=== PATIENT | male | born 1945 | race Hispanic/Latino ===

== ENCOUNTER → 2018-02-15 | Outpatient (CLI) | payer MEDICARE ==
[~2018-02-15] MED LIST: ASPIRIN81 MG PO; CLOPIDOGREL75 MG PO; ENALAPRIL MALE2.5 MG PO; FINASTERIDE5 MG PO; GARLIC1 EACH PO; GLIPIZIDE XL2.5 MG PO; LOVASTATIN40 MG PO; OMEPRAZOLE40 MG PO; OXYBUTYNIN CHLO15 MG PO; SUCRALFATE1 GM PO; VESICARE5 MG PO
--- NOTE | 2018-02-15 15:20 | Diagnostic Imaging Report ---
EXAMINATION: Pelvis and sacrum Films CLINICAL HISTORY:Bladder problems, neuromuscular dysfunction of bladder, unspecified COMPARISON: None. DISCUSSION: Generalized osteopenia. No acute, displaced fractures or dislocations. Mild degenerative changes in bilateral hip and sacroiliac joints. No gross soft tissue abnormalities. No osteolytic or osteoblastic lesions. Sacral arches are preserved. Neurostimulator device in the soft tissues of the left lower back/upper gluteal region, with wire likely traversing the right S4 foramen. Moderate degenerative disc changes at L4-L5 and L5-S1. IMPRESSION: 1. No acute abnormalities. 2. Neural stimulator device in the left lower back/upper gluteal region, with wire likely traversing the right S4 neural foramen Signed by: Dr. Heriberto Villanueva M.D. on 02/15/2018 3:17 PM
== END ==
LOC: RAD 13:17
PROVIDERS: ATTEND Urology
DX: N31.9 Neuromuscular dysfunction of bladder, unspecified (principal)
CPT/HCPCS: 72170; 72220

== ENCOUNTER → 2018-05-06 | Day surgery (SDC) | payer MEDICARE ==
[2018-05-03 16:59] LABS: BASOPHILS % 0.3 % (0.0-1.0); EOSINOPHILS # (AUTO) 0.4 (0.0-0.4); EOSINOPHILS % 6.4 % (0.0-6.0); HEMATOCRIT 41.7 % (38.2-49.6); HEMOGLOBIN 13.8 g/dL (14.0-18.0); LYMPHOCYTES # (AUTO) 1.6 (1.0-3.2); LYMPHOCYTES % 25.8 % (18.0-39.1); MEAN CORPUSCULAR HEMOGLOBIN 32.2 pg (28-32); MEAN CORPUSCULAR HGB CONC 33.1 g/dL (31-35); MEAN CORPUSCULAR VOLUME 97.2 fL (81-99); MONOCYTES # (AUTO) 0.5 (0.2-0.8); MONOCYTES % 8.2 % (4.4-11.3); NEUTROPHILS # (AUTO) 3.7 (2.1-6.9); NEUTROPHILS % 59.1 % (38.7-80.0); PLATELET COUNT 211 x10e3/uL (140-360); RED BLOOD COUNT 4.29 x10e6/uL (4.3-5.7); RED CELL DISTRIBUTION WIDTH 12.7 % (11.7-14.4)
[2018-05-03 17:15] LABS: ANION GAP 14.3 mmol/L (8-16); BLOOD UREA NITROGEN 14 mg/dL (7-26); BUN/CREATININE RATIO 19 (6-25); CALCIUM 8.8 mg/dL (8.4-10.2); CARBON DIOXIDE 27 mmol/L (22-29); CHLORIDE 103 mmol/L (98-107); CREATININE, SERUM 0.74 mg/dL (0.72-1.25); EST GLOMERULAR FILTRATION RATE > 60 ML/MIN (60-); GLUCOSE 83 mg/dL (74-118); POTASSIUM 4.3 mmol/L (3.5-5.1); SODIUM 140 mmol/L (136-145)
--- NOTE | 2018-05-03 17:21 | Diagnostic Imaging Report ---
EXAM: XR CHEST 2 VIEWS DATE: 05/03/2018 4:43 PM INDICATION: Preoperative, pain COMPARISON: None FINDINGS: Lines and Tubes: None Heart and Mediastinum: No acute cardiomediastinal findings. Tortuosity descending thoracic aorta. Lungs and Pleura: No significant pleural effusion, pneumothorax, or focal consolidation. Bones and Soft Tissues: Degenerative changes spine. IMPRESSION: 1. No acute cardiopulmonary findings. Signed by: Dr. Nando Pereira MD on 05/03/2018 5:18 PM
[~2018-05-06] MED LIST changes: +BUPIVACAINE 0.5%/EPI 30 ML SDV INJ ONE; +CARBIDOPA-LEVO1 EACH PO; +CLINDAMYCIN 600MG / 50ML 50 ML IV ONE; +DEXAMETHASONE SOD PHOS INJ 4 MG/ML VIAL ONE; +FENTANYL CITRATE/PF 100MCG/2 ML INJ ONE; +FERROUS SULFAT325 M1 PO; +GABAPENTIN100 MG PO; +GENTAMICIN 80MG/NS 100 ML 100 ML IV ONE; +LEXAPRO10 MG PO; +LIDOCAINE 2%/ EPINEPHRINE 20ML MDV ONE; +LIDOCAINE HCL 2% LOCAL INJ 5 ML SDV VIAL INJ ONE; +METOPROLOL TART25 MG PO; +ONDANSETRON HCL INJ 2MG/ML 2ML 2 MG/ML VIAL ONE; +PANTOPRAZOLE SO40 MG PO; +PROPOFOL IV EMULSION 10 MG/ML 20 ML VIAL ONE; +SEVOFLURANE INHAL SOLN 250 ML PEN BTL ONE; +SINEMET 25-1001 EACH PO; +SUCCINYLCHOLINE 200 MG/10 ML SYR ONE
--- OUTSIDE RECORDS SUMMARY | 2018-05-06 08:39 | XMS REPORT | Clinical Summary ---
Author Author TAMMY [facility] Address Unknown Phone Unavailable Care Team Providers Care Packer Name Role Phone Valerie Myradahlia Suarez PCP Allergies Comments Active Allergy Reactions Severity Noted Date Penicillins Hives 07/16/2017 Medications End Date Status Medication Sig Dispensed Refills Start Date Active lovastatin (MEVACOR) 40 Take 40 mg by 0 MG tablet mouth nightly. Active pantoprazole (PROTONIX) Take 40 mg by 0 40 MG tablet mouth daily. Active glipiZIDE 2.5 MG halftab Take 10 mg by 0 half tablet mouth every morning before breakfast. Active gabapentin (NEURONTIN) Take 100 mg 0 100 MG capsule by mouth 3 (three) times daily. Active finasteride (PROSCAR) 5 Take 5 mg by 0 mg tablet mouth daily. Active linaclotide (LINZESS) 145 Take by 0 mcg Cap mouth. Active clopidogrel (PLAVIX) 75 Take 75 mg by 0 mg tablet mouth daily. Active enalapril (VASOTEC) 2.5 Take 2.5 mg 0 MG tablet by mouth daily. Active solifenacin (VESICARE) 5 Take 10 mg by 0 MG tablet mouth daily. Active ferrous sulfate 325 (65 Take 325 mg 0 FE) MG tablet by mouth daily with breakfast. Active carbidopa-levodopa Take 1 tablet 0 (SINEMET) 25-100 mg per by mouth 3 tablet (three) times daily. 09/14/2017 Discontinued escitalopram oxalate Take 10 mg by 0 (LEXAPRO) 10 MG tablet mouth daily. 09/22/2017 HYDROcodone-acetaminophen Take 2 30 tablet 0 (NORCO 5-325) 5-325 mg tablets by 8 per tablet mouth every 6 (six) hours for 10 days. Max Daily Amount: 8 tablets 09/19/2017 levoFLOXacin (LEVAQUIN) Take 1 tablet 7 tablet 0 500 MG tablet (500 mg 8 total) by mouth daily for 7 days. 09/22/2017 traMADol (ULTRAM) 50 mg Take 1 tablet 30 tablet 0 tablet (50 mg total) 8 by mouth every 6 (six) hours for 10 days. 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 [facility] General Internal Medicine - Encounter 09/15/2017 Jermain Zamudio MD 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 Encounter Jermain Zamudio MD 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 Encounter Jeramin Zamudio MD 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 Hospital Pre-Admission Testing Encounter 08/25/2017 Orders Only General Internal Medicine Jermain Zamudio MD Ampullary adenoma (Primary Dx) 08/23/2017 Outside Orders Radiology Inocencio Guerrero MD 08/03/2017 Anesthesia Gastroenterology Event Mic Gutierrez MD ERCP,BALLOON SWEEPING 08/03/2017 Surgery Gastroenterology Mic Gutierrez MD 08/03/2017 Hospital Gastroenterology Encounter Jermain Zamudio MD Ampullary adenoma (Primary Dx) 07/29/2017 Outside Orders Central Scheduling after 05/05/2017 Social History Date Tobacco Use Types Packs/Day Years Used Former Smoker Smokeless Tobacco: Never Used Comments: quit 1997 Alcohol Use Drinks/Week oz/Week Comments No Sex Assigned at Date Recorded Not on file Industry Job Start Date Occupation Not on file Not on file Not on file Travel End Travel History Travel Start No recent travel history available. Last Filed Vital Signs Time Taken Vital Sign Reading 09/24/2017 7:25 PM CDT Blood Pressure 145/76 09/24/2017 7:25 PM CDT Pulse 98 09/24/2017 7:25 PM CDT Temperature 36.8 C (98.2 F) 09/24/2017 7:25 PM CDT Respiratory Rate 18 09/24/2017 7:25 PM CDT Oxygen Saturation 97% 09/12/2017 10:37 PM CDT Inhaled Oxygen 21% Concentration 09/14/2017 7:05 AM CDT Weight 70.5 kg (155 lb 6.4 oz) 09/09/2017 8:15 PM CDT Height 170.2 cm (5' 7") 09/14/2017 7:05 AM CDT Body Mass Index 24.34 Plan of Treatment Not on file Implants Device Identifier Shelf Expiration Date Model / Serial / Lot Implanted Type Area Manufactur er 07/04/2019 4301-02 / / [id number] Memb Seprafilm Adhen Rodriguez 5x6 Cement/Juan N/A: Abdomen GENZYME 4301-02 - [id number] ler/Adhesi DEMARIO: Implanted: Qty: 2 on 09/09/2017 by ve BIO-SURG Jermain Zamudio MD 06/24/2019 7064 / [id number] / [id number] Stent Bili Rx Wallflx 10x60 - Stents-Per N/A: Bile Duct [place] [id number] ipheral SCI:ENDO Implanted: Qty: 1 on 08/03/2017 by Mic Gutierrez MD Procedures Comments Procedure Name Priority Date/Time Associated Diagnosis INTRAOPERATIVE PATH 01/21/2018 REPORT - SCAN 6:[address] ABDOMEN/PELVIS WITH IV STAT 09/24/2017 CONTRAST 5:20 PM CDT URINALYSIS W/ MICROSCOPIC STAT 09/24/2017 3:36 PM CDT URINE CULTURE STAT 09/24/2017 3:36 PM CDT POCT-LACTIC ACID, VENOUS Routine 09/24/2017 1:52 PM CDT CBC W/PLT COUNT & AUTO STAT 09/24/2017 DIFFERENTIAL 1:50 PM CDT HEPATIC FUNCTION PANEL STAT 09/24/2017 1:50 PM CDT TROPONIN I STAT 09/24/2017 1:50 PM CDT CREATINE KINASE (CK), STAT 09/24/2017 TOTAL AND MB 1:50 PM CDT CBC W/PLT COUNT & AUTO STAT 09/24/2017 DIFFERENTIAL 1:50 PM CDT BASIC METABOLIC PANEL (7) STAT 09/24/2017 1:50 PM CDT MISCELLANEOUS LAB ORDER Routine 09/24/2017 1:50 PM CDT BLOOD CULTURE STAT 09/24/2017 1:50 PM CDT POCT-GLUCOSE METER Routine 09/15/2017 11:49 AM CDT POCT-GLUCOSE METER Routine 09/15/2017 7:50 AM CDT PHOSPHORUS Routine 09/15/2017 5:57 AM CDT MAGNESIUM Routine 09/15/2017 5:57 AM CDT BASIC METABOLIC PANEL (7) Routine 09/15/2017 5:57 AM CDT CBC (HEMOGRAM ONLY) Routine 09/15/2017 5:57 AM CDT POTASSIUM Routine 09/14/2017 10:15 PM CDT POCT-GLUCOSE METER Routine 09/14/2017 8:48 PM CDT POCT-GLUCOSE METER Routine 09/14/2017 4:53 PM CDT REPORT OF PROCEDURE - 09/14/2017 ENDOSCOPY URL 4:18 PM CDT UPPER ENDOSCOPY 09/14/2017 Dysphagia, unspecified 4:00 PM CDT type Special Needs EGD/PEG WITH ANES POCT-GLUCOSE METER Routine 09/14/2017 11:28 AM CDT POCT-GLUCOSE METER Routine 09/14/2017 5:37 AM CDT PHOSPHORUS Routine 09/14/2017 4:23 AM CDT MAGNESIUM Routine 09/14/2017 4:23 AM CDT BASIC METABOLIC PANEL (7) Routine 09/14/2017 4:23 AM CDT CBC (HEMOGRAM ONLY) Routine 09/14/2017 4:23 AM CDT POCT-GLUCOSE METER Routine 09/13/2017 10:47 PM CDT POCT-GLUCOSE METER Routine 09/13/2017 4:51 PM CDT PHOSPHORUS STAT 09/13/2017 12:30 PM CDT MAGNESIUM STAT 09/13/2017 12:30 PM CDT BASIC METABOLIC PANEL (7) Routine 09/13/2017 12:30 PM CDT POCT-GLUCOSE METER Routine 09/13/2017 12:08 PM CDT CBC (HEMOGRAM ONLY) Routine 09/13/2017 5:52 AM CDT POCT-GLUCOSE METER Routine 09/13/2017 5:09 AM CDT POCT-GLUCOSE METER Routine 09/12/2017 10:35 PM CDT BLOOD GAS, ARTERIAL STAT 09/12/2017 9:[address] ABDOMEN/PELVIS WITH IV STAT 09/12/2017 CONTRAST 8:57 PM CDT ECG 12-LEAD STAT 09/12/2017 6:48 PM CDT TROPONIN I STAT 09/12/2017 5:38 PM CDT XR ABDOMEN 1 VIEW STAT 09/12/2017 4:40 PM CDT POCT-GLUCOSE METER Routine 09/12/2017 3:43 PM CDT POCT-GLUCOSE METER Routine 09/12/2017 12:02 PM CDT POCT-GLUCOSE METER Routine 09/12/2017 7:40 AM CDT ECG 12-LEAD STAT 09/12/2017 6:32 AM CDT TROPONIN I STAT 09/12/2017 4:32 AM CDT BASIC METABOLIC PANEL (7) Routine 09/12/2017 4:32 AM CDT CBC (HEMOGRAM ONLY) Routine 09/12/2017 4:32 AM CDT AMYLASE, BODY FLUID Routine 09/12/2017 4:27 AM CDT AMYLASE, BODY FLUID Routine 09/12/2017 4:26 AM CDT POCT-GLUCOSE METER Routine 09/11/2017 9:29 PM CDT POCT-GLUCOSE METER Routine 09/11/2017 4:44 PM CDT POCT-GLUCOSE METER Routine 09/11/2017 11:24 AM CDT POCT-GLUCOSE METER Routine 09/11/2017 8:30 AM CDT POCT-GLUCOSE METER Routine 09/10/2017 10:29 PM CDT TRANSFUSION SERVICE 09/10/2017 REPORT - SCAN 5:50 PM CDT POCT-GLUCOSE METER Routine 09/10/2017 5:47 PM CDT POCT-GLUCOSE METER Routine 09/10/2017 11:24 AM CDT AMYLASE, BODY FLUID Routine 09/10/2017 10:01 AM CDT AMYLASE, BODY FLUID JENNI 09/10/2017 10:00 AM CDT POCT-GLUCOSE METER Routine 09/10/2017 7:34 AM CDT MAGNESIUM Routine 09/10/2017 5:17 AM CDT BASIC METABOLIC PANEL (7) Routine 09/10/2017 5:17 AM CDT CBC (HEMOGRAM ONLY) Routine 09/10/2017 5:17 AM CDT AMYLASE, BODY FLUID Routine 09/10/2017 5:17 AM CDT AMYLASE, BODY FLUID Routine 09/10/2017 5:17 AM CDT POCT-GLUCOSE METER Routine 09/09/2017 8:45 PM CDT POCT-GLUCOSE METER Routine 09/09/2017 6:02 PM CDT POCT-GLUCOSE METER Routine 09/09/2017 3:34 PM CDT CALCIUM, IONIZED STAT 09/09/2017 11:51 AM CDT GLUCOSE-STAT LAB STAT 09/09/2017 11:51 AM CDT SURGICALLY OBTAINED Routine 09/09/2017 CULTURE + GRAM STAIN 10:55 AM CDT ANAEROBIC CULTURE JENNI 09/09/2017 10:55 AM CDT CALCIUM, IONIZED STAT 09/09/2017 10:13 AM CDT HGB/HCT (H&H) - STAT LAB STAT 09/09/2017 10:13 AM CDT GLUCOSE-STAT LAB STAT 09/09/2017 10:13 AM CDT POTASSIUM-STAT LAB STAT 09/09/2017 10:13 AM CDT SODIUM NA-STAT LAB STAT 09/09/2017 10:13 AM CDT BLOOD GAS, ARTERIAL STAT 09/09/2017 10:13 AM CDT TISSUE EXAM AP Routine 09/09/2017 9:25 AM CDT WHIPPLE 09/09/2017 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 Needs (ERAS ANESTHESIA PROTOCAL) PREPARE RBC STAT 09/09/2017 6:48 AM CDT POCT-GLUCOSE METER Routine 09/09/2017 6:43 AM CDT TRANSFUSION SERVICE 08/26/2017 REPORT - SCAN 5:[address] ABDOMEN/PELVIS Routine 08/25/2017 Ampullary adenoma WITH/WITHOUT IV CONTRAST 3:[address] CHEST WITH IV CONTRAST Routine 08/25/2017 Ampullary adenoma 3:20 PM CDT ECG 12-LEAD Routine 08/25/2017 1:30 PM CDT Procedure Note - Interface, External Ris In - 08/25/2017 1:42 PM CDT Ventricula r Rate 67 BPM Atrial Rate 67 BPM P-R Interval 174 ms QRS Duration 102 ms Q-T Interval 390 ms QTC Calculatio n(Bazett) 412 ms P Branch 75 degrees R Branch -21 degrees T Branch 54 degrees Normal sinus rhythm Normal ECG No previous ECGs available ECG 12-LEAD Routine 08/25/2017 1:30 PM CDT CBC W/PLT COUNT & AUTO Routine 08/25/2017 Ampullary adenoma DIFFERENTIAL 1:24 PM CDT TYPE AND SCREEN, Routine 08/25/2017 AUTOMATED 1:24 PM CDT PREALBUMIN Routine 08/25/2017 Ampullary adenoma 1:24 PM CDT PROTHROMBIN TIME/INR Routine 08/25/2017 Ampullary adenoma 1:24 PM CDT HEPATIC FUNCTION PANEL Routine 08/25/2017 Ampullary adenoma 1:24 PM CDT BASIC METABOLIC PANEL (7) Routine 08/25/2017 Ampullary adenoma 1:24 PM CDT CBC W/PLT COUNT & AUTO Routine 08/25/2017 Ampullary adenoma DIFFERENTIAL 1:24 PM CDT REPORT OF PROCEDURE - 08/03/2017 ENDOSCOPY URL 3:42 PM CDT FL ERCP Routine 08/03/2017 3:40 PM CDT ERCP,BILIARY STENT 08/03/2017 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) Losing weight Epigastric abdominal pain Abnormal digestive system diagnostic imaging Special Needs (SPYGLASS, FLUORO) PROCEDURE W/ C-ARM 08/03/2017 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) Losing weight Epigastric abdominal pain Abnormal digestive system diagnostic imaging Special Needs (SPYGLASS, FLUORO) ERCP,BALLOON SWEEPING 08/03/2017 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 Narrative Performed At FINAL REPORT [facility] CT scan of the abdomen and pelvis. CLINICAL HISTORY: Abdominal pain, gastritis or colitis suspected. COMPARISON STUDY: September 12, 2017. TECHNIQUE: Contiguous helical slices were acquired through the abdomen and pelvis post administration of intravenous contrast. No oral contrast was administered. This exam was performed according to our department dose optimization program which includes automated exposure control, adjustment of the mA and/or kV according to the patient's size and/or use of iterative reconstruction technique. FINDINGS: A 3 mm nodule is seen in the right lower lobe on image seven. There is a 4 mm subpleural nodule in the right middle lobe on image four. The liver demonstrates no definite focal masses. Postsurgical changes are seen related to a Whipple procedure. There is a 2.3 x 1.7 cm fluid collection interposed between the residual pancreas and left lobe of the liver. A 2.4 x 1.6 cm focus of fluid is seen inferior to the pancreatic anastomosis. Bowel wall thickening is noted in this region. Stranding is seen in the mesentery. The previously seen extraluminal gas has resolved. The stomach remains distended and fluid-filled. The spleen, adrenal glands and kidneys are unremarkable. Pneumobilia is seen. The portal vein remains patent measuring 9 mm distally. It is compressed proximally. No dilated loops of bowel are seen to suggest obstruction. A tiny calcification is seen in the anterior wall of the bladder. Minimal gas is also noted in the bladder. This could be related to recent Montejo catheter insertion. A cystitis would also be possible. The aorta is normal in caliber. Stranding is seen anterior to the aorta with small lymph nodes identified. This should be followed up. Significant diverticulosis is seen. Bone windows demonstrate degenerative changes. A stimulation device is seen in the buttock region with a wire extending to the pelvis. IMPRESSION: 1. Tiny nodules in the right lung base. 2. Status post Whipple procedure with two small loculated areas of fluid in the surgical bed. 3. Distended, fluid-filled stomach and a gastric outlet obstruction cannot be excluded. 4. Areas of stranding and some small lymph nodes at the site of surgery which could be followed up. 5. Small amount of gas in the bladder. Correlation with urinalysis could be made. Signed: Greg Ceron MD Report Verified Date/Time:09/24/2017 17:36:36 Reading Location: [facility] B1 [id number] [facility] Consult Reading Room Procedure Note Interface, External Ris In - 09/24/2017 5:38 PM CDT FINAL REPORT CT scan of the abdomen and pelvis. CLINICAL HISTORY: Abdominal pain, gastritis or colitis suspected. COMPARISON STUDY: September 12, 2017. TECHNIQUE: Contiguous helical slices were acquired through the abdomen and pelvis post administration of intravenous contrast. No oral contrast was administered. This exam was performed according to our department dose optimization program which includes automated exposure control, adjustment of the mA and/or kV according to the patient's size and/or use of iterative reconstruction technique. FINDINGS: A 3 mm nodule is seen in the right lower lobe on image seven. There is a 4 mm subpleural nodule in the right middle lobe on image four. The liver demonstrates no definite focal masses. Postsurgical changes are seen related to a Whipple procedure. There is a 2.3 x 1.7 cm fluid collection interposed between the residual pancreas and left lobe of the liver. A 2.4 x 1.6 cm focus of fluid is seen inferior to the pancreatic anastomosis. Bowel wall thickening is noted in this region. Stranding is seen in the mesentery. The previously seen extraluminal gas has resolved. The stomach remains distended and fluid-filled. The spleen, adrenal glands and kidneys are unremarkable. Pneumobilia is seen. The portal vein remains patent measuring 9 mm distally. It is compressed proximally. No dilated loops of bowel are seen to suggest obstruction. A tiny calcification is seen in the anterior wall of the bladder. Minimal gas is also noted in the bladder. This could be related to recent Montejo catheter insertion. A cystitis would also be possible. The aorta is normal in caliber. Stranding is seen anterior to the aorta with small lymph nodes identified. This should be followed up. Significant diverticulosis is seen. Bone windows demonstrate degenerative changes. A stimulation device is seen in the buttock region with a wire extending to the pelvis. IMPRESSION: 1. Tiny nodules in the right lung base. 2. Status post Whipple procedure with two small loculated areas of fluid in the surgical bed. 3. Distended, fluid-filled stomach and a gastric outlet obstruction cannot be excluded. 4. Areas of stranding and some small lymph nodes at the site of surgery which could be followed up. 5. Small amount of gas in the bladder. Correlation with urinalysis could be made. Signed: Greg Ceron MD Report Verified Date/Time: 09/24/2017 17:36:36 Reading Location: [facility] C013X [facility] Consult Reading Room Performing Organization Address City/State/Zipcode Phone Number [facility] * Urinalysis w/Microscopic (09/24/2017 3:36 PM CDT) Color, UA Yellow [facility] Clarity, UA Clear [facility] Specific [place], UA 1.007 1.001 - 1.035 [facility] pH, UA 7.0 5.0 - 8.0 [facility] Protein, UA Negative Negative [facility] Glucose, UA Negative Negative [facility] Ketones, UA Negative Negative [facility] Bilirubin, UA Negative Negative [facility] Blood, UA Negative Negative [facility] Nitrite, UA Negative Negative [facility] Leukocytes, UA Moderate (A) Negative [facility] Urobilinogen, UA 0.2 0.2 - 1.0 mg/dL [facility] RBC, UA <1 /HPF [facility] WBC, UA 4 /HPF [facility] Mucus Rare [facility] Squam Epithel, UA 1 /HPF [facility] Specimen Source Urine, Voided [facility] Specimen Urine - Urine, Voided Performing Organization Address City/State/Zipcode Phone Number [facility] [address] [place] [address] MEDICAL [facility] * Urine culture (09/24/2017 3:36 PM CDT) Result STAPHYLOCOCCUS, COAGULASE [facility] NEGATIVE (A) [facility] Specimen Urine - Urine, Voided Antibiotic Method Susceptibility Organism Clindamycin >=4: Resistant Coagulase negative Staphylococcus Erythromycin >=8: Resistant Coagulase negative Staphylococcus Linezolid 1: Susceptible Coagulase negative Staphylococcus Nitrofurantoin <=16: Susceptible Coagulase negative Staphylococcus Oxacillin >=4: Resistant Coagulase negative Staphylococcus Rifampin >=32: Resistant Coagulase negative Staphylococcus Tetracycline <=1: Susceptible Coagulase negative Staphylococcus Trimethoprim + Sulfamethoxazole 160: Resistant Coagulase negative Staphylococcus Vancomycin 1: Susceptible Coagulase negative Staphylococcus Performing Organization Address City/[facility]/Zipcode Phone Number [address] [address] [facility] * POC-Lactic Acid, Venous (09/24/2017 1:52 PM CDT) POC-Lactic Acid, Venous 0.7 (L)Comment: TESTED AT 0.9 - 1.7 mmol/L [address] [address] Specimen Blood Performing Organization Address [facility] Cent[facility]ode Phone Number [address] [address] [facility] * BCID (09/24/2017 1:50 PM CDT) Scan Result [facility] Specimen Blood Narrative Performed At [facility] Result comments: [facility] NOT DETECTED Panel is negative for CoursePeerFire BCID-detectable organisms. Please refer to traditional culture and sensitivity results as they become available. Other organisms and resistance markers not contained in this PCR panel cannot be excluded and follow-up of traditional culture results is required. This sample was tested at the [facility] using the CoursePeerfirLaunchPoint FilmArray Blood Culture ID Panel. This test is FDA cleared for in vitro diagnostic use and has been verified and approved by the [facility] for clinical use. Reference Range: Not Detected Performing Organization Address City/[facility] Cent[facility]ode Phone Number [address] [address] [facility] * CBC with platelet count + automated diff (09/24/2017 1:50 PM CDT) Only the most recent of 2 results within the time period is included. WBC 8.1 3.5 - 10.5 K/L [facility] RBC 3.95 (L) 4.63 - 6.08 M/L [facility] Hemoglobin 11.7 (L) 13.7 - 17.5 GM/DL [facility] Hematocrit 36.7 (L) 40.1 - 51.0 % [facility] MCV 92.9 (H) 79.0 - 92.[address] [facility] MCH 29.6 25.7 - 32.[address] [facility] MCHC 31.9 (L) 32.3 - 36.5 GM/DL [facility] RDW 14.0 11.6 - 14.4 % [facility] Platelets 563 (H) 150 - 450 K/CU MM [facility] MPV 8.6 (L) 9.4 - 12.[address] [facility] nRBC 0 0 - 0 /[address] [facility] % Neutros 73 % [facility] % Lymphs 13 % [facility] % Monos 8 % [facility] % Eos 4 % [facility] % Baso 1 % [facility] # Neutros 5.92 (H) 1.78 - 5.38 K/L [facility] # Lymphs 1.05 (L) 1.32 - 3.57 K/L [facility] # Monos 0.65 0.30 - 0.82 K/L [facility] # Eos 0.36 0.04 - 0.54 K/L [facility] # Baso 0.04 0.01 - 0.08 K/L [facility] Immature 1 0 - 1 % [facility] Specimen Blood - Line, Venous Performing Organization Address City/State/Zipcode Phone Number [facility] [address] [place] [address] MEDICAL [facility]ENTER * Troponin I (09/24/2017 1:50 PM CDT) Only the most recent of 3 results within the time period is included. Troponin I <0.01 0.00 - 0.03 ng/mL [facility] Specimen Blood - Line, Venous Narrative Performed At Troponin I (TnI) levels must be interpreted in the context of the presenting [facility] symptoms and the clinical findings. Elevated TnI levels indicate myocardial [facility] damage, but are not specific for ischemic heart disease. Elevated TnI levels are seen in patients with other cardiac conditions (including myocarditis and congestive heart failure), and slight TnI elevations occur in patients with other conditions, including sepsis, renal failure, acidosis, acute neurological disease, and persistent tachyarrhythmia. Performing Organization Address [facility] Centercode Phone Number [address] [address] [facility] * Blood culture (09/24/2017 1:50 PM CDT) Result No growth in [address] [facility] Specimen Blood - Line, Venous Narrative Performed At NOT DETECTED [facility] Panel is negative for BioFire BCID-detectable organisms. Please refer to [facility] traditional culture and sensitivity results as they become available. Other organisms and resistance markers not contained in this PCR panel cannot be excluded and follow-up of traditional culture results is required. This sample was tested at the [facility] using the CoursePeerfirLaunchPoint FilmArray Blood Culture ID Panel. This test is FDA cleared for in vitro diagnostic use and has been verified and approved by the [facility] for clinical use. Reference Range: Not Detected Performing Organization Address City/[facility]/Zipcode Phone Number [facility] [facility] [address] [place] [address] [facility] * Creatine Kinase (CK), Total and MB (09/24/2017 1:50 PM CDT) Total CK 11 (L) 29 - 200 U/L [facility] CK-MB 0.7 0.0 - 6.6 ng/mL [facility] MB Relative Index 6.4 % [facility] Specimen Blood - Line, Venous Narrative Performed At CK-MB Reference Range: [facility] <6.7Normal [facility] 6.7-10.0Borderline >10.0 Abnormal Performing Organization Address City/[facility]/Zipcode Phone Number [facility] [address] [place] [address] [facility] * Hepatic function panel (09/24/2017 1:50 PM CDT) Only the most recent of 2 results within the time period is included. Protein, Total 6.6 6.0 - 8.3 gm/dL [facility] Albumin 3.5 3.5 - 5.0 g/dL [facility] Total Bilirubin 0.3 0.2 - 1.2 mg/dL [facility] Bilirubin, Direct 0.2 0.1 - 0.5 mg/dL [facility] Alkaline Phosphatase 100 40 - 150 U/L [facility] AST 14 5 - 34 U/L [facility] ALT 8 6 - 55 U/L [facility] Specimen Blood - Line, Venous Performing Organization Address City/[facility]/Zipcode Phone Number [facility] [address] [place] [address] [facility] * Basic Metabolic Panel (09/24/2017 1:50 PM CDT) Only the most recent of 7 results within the time period is included. Sodium 137 136 - 145 meq/L [facility] Potassium 4.4 3.5 - 5.1 meq/L [facility] Chloride 101 98 - 107 meq/L [facility] CO2 28 22 - 29 meq/L [facility] BUN 11 7 - 21 mg/dL [facility] Creatinine 0.74 0.57 - 1.25 mg/dL [facility] Glucose 155 (H) 70 - 105 mg/dL [facility] Calcium 9.0 8.4 - 10.2 mg/dL [facility] EGFR 104Comment: ESTIMATED GFR IS mL/min/1.73 sq m [facility] NOT ACCURATE CREATININE [facility] CLEARANCE IN PREDICTING GLOMERULAR FILTRATION RATE. ESTIMATED GFR IS NOT APPLICABLE FOR DIALYSIS PATIENTS. Specimen Blood - Line, Venous Performing Organization Address City/[facility] Centercode Phone Number [address] [address] [facility] * POC-Glucose meter (09/15/2017 11:49 AM CDT) Only the most recent of 27 results within the time period is included. POC-Glucose Meter 224 (H)Comment: TESTED AT 70 - 110 mg/dL [address] [address] Specimen Blood Performing Organization Address City/[facility] Centercomo Phone Number [address] [address] [facility] * CBC (Hemogram only) (09/15/2017 5:57 AM CDT) Only the most recent of 5 results within the time period is included. WBC 8.1 3.5 - 10.5 K/L [facility] RBC 3.12 (L) 4.63 - 6.08 M/L [facility] Hemoglobin 9.9 (L) 13.7 - 17.5 GM/DL [facility] Hematocrit 30.0 (L) 40.1 - 51.0 % [facility] MCV 96.2 (H) 79.0 - 92.[address] [facility] MCH 31.7 25.7 - 32.[address] [facility] MCHC 33.0 32.3 - 36.5 GM/DL [facility] RDW 14.6 (H) 11.6 - 14.4 % [facility] Platelets 230 150 - 450 K/CU MM [facility] MPV 9.3 (L) 9.4 - 12.[address] [facility] nRBC 0 0 - 0 /[address] [facility] Specimen Blood - Arm, Left Performing Organization Address [facility] Centercode Phone Number [address] * Phosphorus (09/15/2017 5:57 AM CDT) Only the most recent of 3 results within the time period is included. Phosphorus 2.8 2.3 - 4.7 mg/dL [facility] Specimen Blood - Arm, Left Performing Organization Address [facility] Phone Number [address] * Magnesium (09/15/2017 5:57 AM CDT) Only the most recent of 4 results within the time period is included. Magnesium 2.1 1.6 - 2.6 mg/dL [facility] Specimen Blood - Arm, Left Performing Organization Address [facility] Phone Number [address] * Potassium (09/14/2017 10:15 PM CDT) Potassium 3.7 3.5 - 5.1 meq/L [facility] Specimen Blood - Arm, Right Narrative Performed At Please check once IV potassium repletion complete [facility] Performing Organization Address [facility] Phone Number [address] * REPORT OF PROCEDURE - ENDOSCOPY URL (09/14/2017 4:18 PM CDT) Narrative Performed At * Blood gas, arterial (09/12/2017 9:55 PM CDT) Only the most recent of 2 results within the time period is included. pH, Arterial 7.48 (H) 7.35 - 7.45 [facility] pCO2, Arterial 44 35 - [address] [facility] pO2, Arterial 58 (L) 80 - [address] [facility] O2 Sat, Arterial 91.9 (L) 96.0 - 97.0 % [facility] HCO3, Arterial 32 (H) 21 - 29 mmol/L [facility] Base Excess, Arterial 7.0 (H) -2.0 - 3.0 mmol/L [facility] Patient Temperature 36.[address] [facility] Specimen Blood, Arterial Performing Organization Address City/State/Zipcode Phone Number [facility] [address] [place] [address] [facility] * ECG 12 lead (09/12/2017 6:48 PM CDT) Only the most recent of 3 results within the time period is included. Narrative Performed At Ventricular Rate 129 BPM GE MUSE Atrial Rate 129 BPM P-R Interval 142 ms QRS Duration 94 ms Q-T Interval 300 ms QTC Calculation(Bazett) 439 ms P Branch 41 degrees R Branch -5 degrees T Branch 31 degrees Sinus tachycardia Possible Lateral infarct (cited on or before 12-SEP-2017) Abnormal ECG When compared with ECG of 12-SEP-2017 06:32, ST now depressed in Anterior leads Confirmed by Mir BARNES MICHAEL ([id number]) on 09/13/2017 7:11:21 AM Procedure Note Interface, External Ris In - 09/13/2017 7:11 AM CDT Ventricular Rate 129 BPM Atrial Rate 129 BPM P-R Interval 142 ms QRS Duration 94 ms Q-T Interval 300 ms QTC Calculation(Bazett) 439 ms P Branch 41 degrees R Branch -5 degrees T Branch 31 degrees Sinus tachycardia Possible Lateral infarct (cited on or before 12-SEP-2017) Abnormal ECG When compared with ECG of 12-SEP-2017 06:32, ST now depressed in Anterior leads Confirmed by Mir BARNES MICHAEL ([id number]) on 09/13/2017 7:11:21 AM Performing Organization Address City/[facility] Phone Number GE MUSE * XR abdomen / KUB 1 view (09/12/2017 4:40 PM CDT) Narrative Performed At FINAL REPORT GE [facility] Abdomen One View: Reason for Exam: SBO Comparison studies: CT, 08/25/2017 Discussion: There is a relative lack of bowel gas in the left mid and upper abdomen, possibly a distended fluid-filled stomach. No obstruction is seen. No free intraperitoneal air is seen on the supine x-rays. The bones are intact. A pelvic stimulator device is identified. Impression: No acute radiographic abnormality. Signed: Emile Richardson MD Report Verified Date/Time:09/12/2017 17:15:43 Reading Location: [address] Ortho Consult Reading Room Procedure Note Interface, External Ris In - 09/12/2017 5:17 PM CDT FINAL REPORT Abdomen One View: Reason for Exam: SBO Comparison studies: CT, 08/25/2017 Discussion: There is a relative lack of bowel gas in the left mid and upper abdomen, possibly a distended fluid-filled stomach. No obstruction is seen. No free intraperitoneal air is seen on the supine x-rays. The bones are intact. A pelvic stimulator device is identified. Impression: No acute radiographic abnormality. Signed: Emile Richardson MD Report Verified Date/Time: 09/12/2017 17:15:43 Reading Location: [address] Ortho Consult Reading Room Performing Organization Address [facility] Phone Number [employer] RIS * Amylase, body fluid (09/12/2017 4:27 AM CDT) Only the most recent of 6 results within the time period is included. Amylase, Fluid 172 U/L [facility] Specimen Body Fluid - ROSE Drain Narrative Performed At Absence of reference range indicates that normals have not been defined. [facility] Assay performance has not been validated for this type of specimen. [facility] ROSE #2 Performing Organization Address City/[facility]/Zipcode Phone Number [address] * TRANSFUSION SERVICE REPORT - SCAN (09/10/2017 5:50 PM CDT) Only the most recent of 2 results within the time period is included. Narrative Performed At * Glucose-Stat Lab (09/09/2017 11:51 AM CDT) Only the most recent of 2 results within the time period is included. Glucose 212 (H) 70 - 110 mg/dL [facility] Specimen Blood, Arterial Performing Organization Address [facility] Centercomo Phone Number [address] * Calcium, Ionized (09/09/2017 11:51 AM CDT) Only the most recent of 2 results within the time period is included. Calcium, Ion 1.11 (L) 1.12 - 1.27 mmol/L [facility] pH, Blood 7.47 [facility] Specimen Blood Performing Organization Address [facility] Centercomo Phone Number [address] * Anaerobic culture (09/09/2017 10:55 AM CDT) Result BACTEROIDES FRAGILIS (A) [facility] Result ANAEROBIC GRAM-NEGATIVE [facility] BACILLUS (A)Comment: Same as [facility] first isolate. Specimen Body Fluid - Abdomen Performing Organization Address [facility] Centercode Phone Number [place] [phone] [place] [address] * Surgically obtained culture + gram stain (09/09/2017 10:55 AM CDT) Result PROTEUS MIRABILIS (A) [facility] Result SERRATIA MARCESCENS [facility] (A)Comment: AmpC Positive [facility] Result ESCHERICHIA COLI (A) [facility] Result KLEBSIELLA OXYTOCA (A) [facility] Result 3+ Enterococcus species (A) [facility] Result STREPTOCOCCUS, VIRIDANS GROUP [facility] (A) [facility] Gram Stain Result No WBCs [facility] Gram Stain Result No organisms seen [facility] Specimen Wound - Abdomen Antibiotic Method Susceptibility Organism Amikacin <=2: Susceptible Proteus mirabilis Ampicillin + Sulbactam <=2: Susceptible Proteus mirabilis Cefepime <=1: Susceptible Proteus mirabilis Cefoxitin <=4: Susceptible Proteus mirabilis Ceftazidime <=1: Susceptible Proteus mirabilis Ceftriaxone <=1: Susceptible Proteus mirabilis Ertapenem <=0.5: Susceptible Proteus mirabilis Gentamicin <=1: Susceptible Proteus mirabilis Levofloxacin <=0.12: Susceptible Proteus mirabilis Meropenem 1: Susceptible Proteus mirabilis Piperacillin + Tazobactam <=4: Susceptible Proteus mirabilis Tetracycline >=16: Resistant Proteus mirabilis Tobramycin <=1: Susceptible Proteus mirabilis Trimethoprim + Sulfamethoxazole <=20: Susceptible Proteus mirabilis Amikacin <=2: Susceptible Serratia marcescens Aztreonam Resistant Serratia marcescens Cefepime <=1: Susceptible Serratia marcescens Cefoxitin 32: Resistant Serratia marcescens Ceftazidime Resistant Serratia marcescens Ceftriaxone Resistant Serratia marcescens Ertapenem <=0.5: Susceptible Serratia marcescens Gentamicin <=1: Susceptible Serratia marcescens Levofloxacin <=0.12: Susceptible Serratia marcescens Meropenem <=0.25: Susceptible Serratia marcescens Tetracycline 4: Susceptible Serratia marcescens Tobramycin <=1: Susceptible Serratia marcescens Trimethoprim + Sulfamethoxazole <=20: Susceptible Serratia marcescens Amikacin <=2: Susceptible Escherichia coli Ampicillin + Sulbactam <=2: Susceptible Escherichia coli Aztreonam <=1: Susceptible Escherichia coli Cefepime <=1: Susceptible Escherichia coli Cefoxitin <=4: Susceptible Escherichia coli Ceftazidime <=1: Susceptible Escherichia coli Ceftriaxone <=1: Susceptible Escherichia coli Ertapenem <=0.5: Susceptible Escherichia coli Gentamicin <=1: Susceptible Escherichia coli Levofloxacin <=0.12: Susceptible Escherichia coli Meropenem <=0.25: Susceptible Escherichia coli Piperacillin + Tazobactam <=4: Susceptible Escherichia coli Tetracycline >=16: Resistant Escherichia coli Tobramycin <=1: Susceptible Escherichia coli Trimethoprim + Sulfamethoxazole <=20: Susceptible Escherichia coli Amikacin <=2: Susceptible Klebsiella oxytoca Ampicillin + Sulbactam 4: Susceptible Klebsiella oxytoca Aztreonam <=1: Susceptible Klebsiella oxytoca Cefepime <=1: Susceptible Klebsiella oxytoca Cefoxitin <=4: Susceptible Klebsiella oxytoca Ceftazidime <=1: Susceptible Klebsiella oxytoca Ceftriaxone <=1: Susceptible Klebsiella oxytoca Ertapenem <=0.5: Susceptible Klebsiella oxytoca Gentamicin <=1: Susceptible Klebsiella oxytoca Levofloxacin <=0.12: Susceptible Klebsiella oxytoca Meropenem <=0.25: Susceptible Klebsiella oxytoca Piperacillin + Tazobactam <=4: Susceptible Klebsiella oxytoca Tetracycline <=1: Susceptible Klebsiella oxytoca Tobramycin <=1: Susceptible Klebsiella oxytoca Trimethoprim + Sulfamethoxazole <=20: Susceptible Klebsiella oxytoca Ampicillin <=2: Susceptible Enterococcus species Linezolid 2: Susceptible Enterococcus species Vancomycin <=0.5: Susceptible Enterococcus species Performing Organization Address [facility] Phone Number [place] [phone] * Potassium-Stat Lab (09/09/2017 10:13 AM CDT) Potassium 3.6 3.6 - 5.5 meq/L [facility] Specimen Blood, Arterial Performing Organization Address [facility] [place] [address] [phone] * Sodium Na-Stat Lab (09/09/2017 10:13 AM CDT) Sodium 137 135 - 148 meq/L [facility] Specimen Blood, Arterial Performing Organization Address [facility]/State/Zipcode Phone Number [facility] [address] [place] [address] [facility] * HGB/HCT (H&H)-Stat Lab (09/09/2017 10:13 AM CDT) Hemoglobin 12.2 (L) 13.0 - 16.8 g/dL [facility] Hematocrit 36.0 (L) 40.0 - 50.0 % [facility] Specimen Blood, Arterial Performing Organization Address City/State/Zipcode Phone Number [facility] [address] [place] [address] [facility] * Tissue Exam (09/09/2017 9:25 AM CDT) Case Report Surgical Pathology [facility] Report [facility] Case: [id number] Authorizing Provider:Jermain Zamudio MD Collected: 09/09/2017 0925 Ordering Location: [facility] PERIOPERATIVE Received: 09/09/2017 1142 SERVICES Pathologist: Aster Mtz MD Specimens: A) - Lymph Node, Hepatic Artery Lymph Node B) - Gallbladder C) - Node, CYSTIC NODE D) - Pancreas, WHIPPLE SPECIMEN ( LONG STITCH SMA MARGINS) (SHORT STITCH -PANCREATIC NECK0 (BLUE STITCH IS BILEDUCT) DIAGNOSIS A. LYMPH NODES, HEPATIC [facility] ARTERY, EXCISION: [facility] - ONE BENIGN LYMPH NODE B. GALLBLADDER, CHOLECYSTECTOMY: - GALLBLADDER WITH ACUTE AND CHRONIC INFLAMMATION - NEGATIVE FOR INTESTINAL METAPLASIA, DYSPLASIA OR CARCINOMA C. LYMPH NODES, CYSTIC DUCT, DISSECTION: - ONE BENIGN LYMPH NODE D. 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 CPT Code(s) A. 09013 [facility] B. 32896 [facility] C. 18618 D. 48133, [address], [address]3240 x2 SPECIMEN SOURCE A. Lymph node; B. Gallbladder; [facility] C. Node; D. Pancreas [facility] GROSS DESCRIPTION The specimen is received in [facility] four parts labeled with the [facility] patient's information and given accession number which corresponds to the requisition slip with the same name and number. A. Received in formalin labeled "lymph node" is a 2.0 x 1.0 x 0.5 cm, clemons-yellow, irregular, soft tissue, which is bisected and submitted entirely in a single cassette, A1. B. Received in formalin labeled "gallbladder" is a 10.5 cm in length x 3.1 cm in average circumference gallbladder to include 2.0 cm in length x 0.2 cm in diameter cystic duct. The external surface is clemons-pink to focally brownish smooth and glistening. The specimen is opened to reveal clemons-brown, smooth and glistening mucosal surface. No hemorrhage, necrosis, calculi or lesions are identified. The wall thickness measuring up to 0.2 cm in average thickness. Drop Hammer Mechanic sections are submitted as follows: B1, cystic duct; B2, customer care representative sections of the gallbladder wall (fundus, body and neck). C. Received in formalin labeled "cystic node tissue" is a 2.0 x 1.0 x 0.5 cm, clemons-brown, irregular, soft tissue. One possible lymph node measuring 0.4 x 0.2 x 0.2 cm is identified. The lymph node is bisected and submitted in cassette C1, and the rest of the is submitted in cassette C2. CRESENCIO/demond D. Received fresh for intraoperative consultation labeled "Whipple specimen" is a Whipple resection specimen including duodenum, head of pancreas and common bile duct stump. The duodenum is 23 cm in length and is 7.0 cm in average diameter circumference and 0.7 cm average wall thickness. The pancreas is 3.5 cm in length and is 4.2 x 4.0 x 3.1 cm in cross sectional area. The common bile duct stump is 0.6 cm in length and 0.3 cm in diameter at the margin. Ink code: green, SMA margin and lumen of common bile duct; red, pancreatic neck margin and luminal pancreatic duct; red, pancreatic neck margin and luminal pancreatic duct; yellow, vascular groove; black, posterior pancreatic surface; blue, anterior pancreatic surface. Gross photographs are taken. Bivalving the pancreas reveals a 2.9 x 2.6 x 2.5cm solid clemons-pink mass centered around the ampulla. The mass is located 7 cm from the proximal duodenal resection margin, 15 cm from the distal duodenal margin, 5 cm from the uncinate margin and 5.5 cm from the common bile duct margin. The pancreatic duct is patent. The common bile duct is patent with 7 cm in length x 0.1 cm in diameter stent in place. The posterior surface is clemons-yellow, lobulated and fatty. The anterior surface is clemons-pink and smooth. The mass does not appear to involve the anterior or posterior surfaces. The uninvolved pancreas is clemons-yellow and soft. The duodenal mucosa is clemons-pink and smooth with irregular mucosal folds. Five possible lymph nodes are identified in the soft tissue around the organs, ranging from 0.5 cm to 2.5 cm in greatest dimension. Gross photographs were taken. Section code: FSD1, pancreatic neck resection margin, en face; FSD2, common bile duct margin, en face; D3, cystic duct margin, en face; D4-D17, ampullary mass, sequentially submitted around the common bile duct; D18, D19, customer care representative sections of the soft tissue of pancreaticoduodenal groove; D20, D21, customer care representative sections of the anterior pancreas (uninvolved); D22, D23, posterior pancreas, uninvolved; D24, D25, peripancreatic lymph node, bisected; D26, D27, peripancreatic lymph nodes (three lymph nodes in each); D28, four possible lymph nodes, peripancreatic. D29, D30, proximal duodenal resection margin, en face, D31-D33 distal duodnal resection margin, D34-D39 uncinate pancreatic margin (perpendicular). D40-D42. Additional sections of pancreas with bile duct. MA/pl/ew INTRAOPERATIVE HEAD OF PANCREAS, DUODENUM, [facility] CONSULTATION WHIPPLE RESECTION [facility] D1FS: PANCREATIC NECK MARGIN - NEGATIVE FOR CARCINOMA [id number]: BILE DUCT MARGINS - NEGATIVE FOR CARCINOMA MICROSCOPIC DESCRIPTION (A-D): Microscopic examination [facility] is performed and the findings [facility] are incorporated in the diagnostic line. Specimen Tissue - Lymph Node Performing Organization Address City/State/Zipcode Phone Number [facility] [address] [place] [address] [facility] * Prepare RBC (09/09/2017 6:48 AM CDT) CROSSMATCH COMPATIBLE SAFETRACE TX Unit ABO O Pos SAFETRACE TX UNIT NUMBER [id number] SAFETRACE TX Status READY SAFETRACE TX Blood Bank Product RED BLOOD CELLS SAFETRACE TX PRODUCT CODE [id number] SAFETRACE TX CROSSMATCH COMPATIBLE SAFETRACE TX Unit ABO O Pos SAFETRACE TX UNIT NUMBER [id number] SAFETRACE TX Status READY SAFETRACE TX Blood Bank Product RED BLOOD CELLS SAFETRACE TX PRODUCT CODE [id number] SAFETRACE TX Performing Organization Address City/[facility] Phone Number SAFETRACE [place] * CT chest with IV contrast (08/25/2017 3:20 PM CDT) Narrative Performed At FINAL REPORT [employer] [facility] INDICATION: 72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 Staging CT exam. COMPARISON: None. TECHNIQUE: CT of the Chest WITH intravenous contrast. CT of the Abdomen and Pelvis WITHOUT and WITH intravenous contrast. Water was used for enteric contrast. The exam was performed according to our department dose-optimization protocol, which includes automated exposure control, adjustments of mA and kV according to patient size. Iterative reconstructions are also sometimes employed. FINDINGS: THORAX: No mediastinal, hilar, supraclavicular, or axillary lymphadenopathy is demonstrated. No suspicious pulmonary nodule or mass is demonstrated. There is no pleural effusion or suspicious pleural nodularity. Thyroid gland is diffusely enlarged extending deep to the manubrium. Both lobes measure approximately 6.5 x 2.8 x 3.9 cm. No thyroid nodules are demonstrated. Esophagus is unremarkable. Heart and pericardium are unremarkable. Mild calcified plaque of the thoracic aorta demonstrated. Thoracic aorta and main pulmonary artery normal in caliber. ABDOMEN and PELVIS: There is a metallic stent in the common bile duct extending into the third part of the duodenum with expected pneumobilia. The intrahepatic bile ducts are not dilated. There is suggestion of thickening of the ampulla, though this is not well visualized because of the presence of the metallic stent. No pancreatic mass or pancreatic ductal dilatation is demonstrated. No upper abdominal lymphadenopathy. No suspicious liver lesion. Spleen, adrenal glands, kidneys, bladder, and prostate gland are unremarkable. No pelvic or retroperitoneal lymphadenopathy. There is scattered mild calcified plaque of the abdominal aorta and iliac arteries. Stomach and jejunal and ileal loops are unremarkable. There is diffuse mild increase in colonic stool burden. Diverticulosis of the sigmoid colon noted. No peritoneal free fluid. BONES: No suspicious osseous lesion demonstrated. IMPRESSION: No evidence of metastasis in the chest, abdomen, or pelvis. Diffusely enlarged and nonnodular thyroid gland. Metallic stent in the common bile duct extending into the third part of the duodenum. No biliary ductal dilatation. 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 Staging CT exam. COMPARISON: None. TECHNIQUE: CT of the Chest WITH intravenous contrast. CT of the Abdomen and Pelvis WITHOUT and WITH intravenous contrast. Water was used for enteric contrast. The exam was performed according to our department dose-optimization protocol, which includes automated exposure control, adjustments of mA and kV according to patient size. Iterative reconstructions are also sometimes employed. FINDINGS: THORAX: No mediastinal, hilar, supraclavicular, or axillary lymphadenopathy is demonstrated. No suspicious pulmonary nodule or mass is demonstrated. There is no pleural effusion or suspicious pleural nodularity. Thyroid gland is diffusely enlarged extending deep to the manubrium. Both lobes measure approximately 6.5 x 2.8 x 3.9 cm. No thyroid nodules are demonstrated. Esophagus is unremarkable. Heart and pericardium are unremarkable. Mild calcified plaque of the thoracic aorta demonstrated. Thoracic aorta and main pulmonary artery normal in caliber. ABDOMEN and PELVIS: There is a metallic stent in the common bile duct extending into the third part of the duodenum with expected pneumobilia. The intrahepatic bile ducts are not dilated. There is suggestion of thickening of the ampulla, though this is not well visualized because of the presence of the metallic stent. No pancreatic mass or pancreatic ductal dilatation is demonstrated. No upper abdominal lymphadenopathy. No suspicious liver lesion. Spleen, adrenal glands, kidneys, bladder, and prostate gland are unremarkable. No pelvic or retroperitoneal lymphadenopathy. There is scattered mild calcified plaque of the abdominal aorta and iliac arteries. Stomach and jejunal and ileal loops are unremarkable. There is diffuse mild increase in colonic stool burden. Diverticulosis of the sigmoid colon noted. No peritoneal free fluid. BONES: No suspicious osseous lesion demonstrated. IMPRESSION: No evidence of metastasis in the chest, abdomen, or pelvis. Diffusely enlarged and nonnodular thyroid gland. Metallic stent in the common bile duct extending into the third part of the duodenum. No biliary ductal dilatation. 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 Staging CT exam. COMPARISON: None. TECHNIQUE: CT of the Chest WITH intravenous contrast. CT of the Abdomen and Pelvis WITHOUT and WITH intravenous contrast. Water was used for enteric contrast. The exam was performed according to our department dose-optimization protocol, which includes automated exposure control, adjustments of mA and kV according to patient size. Iterative reconstructions are also sometimes employed. FINDINGS: THORAX: No mediastinal, hilar, supraclavicular, or axillary lymphadenopathy is demonstrated. No suspicious pulmonary nodule or mass is demonstrated. There is no pleural effusion or suspicious pleural nodularity. Thyroid gland is diffusely enlarged extending deep to the manubrium. Both lobes measure approximately 6.5 x 2.8 x 3.9 cm. No thyroid nodules are demonstrated. Esophagus is unremarkable. Heart and pericardium are unremarkable. Mild calcified plaque of the thoracic aorta demonstrated. Thoracic aorta and main pulmonary artery normal in caliber. ABDOMEN and PELVIS: There is a metallic stent in the common bile duct extending into the third part of the duodenum with expected pneumobilia. The intrahepatic bile ducts are not dilated. There is suggestion of thickening of the ampulla, though this is not well visualized because of the presence of the metallic stent. No pancreatic mass or pancreatic ductal dilatation is demonstrated. No upper abdominal lymphadenopathy. No suspicious liver lesion. Spleen, adrenal glands, kidneys, bladder, and prostate gland are unremarkable. No pelvic or retroperitoneal lymphadenopathy. There is scattered mild calcified plaque of the abdominal aorta and iliac arteries. Stomach and jejunal and ileal loops are unremarkable. There is diffuse mild increase in colonic stool burden. Diverticulosis of the sigmoid colon noted. No peritoneal free fluid. BONES: No suspicious osseous lesion demonstrated. IMPRESSION: No evidence of metastasis in the chest, abdomen, or pelvis. Diffusely enlarged and nonnodular thyroid gland. Metallic stent in the common bile duct extending into the third part of the duodenum. No biliary ductal dilatation. 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 Staging CT exam. COMPARISON: None. TECHNIQUE: CT of the Chest WITH intravenous contrast. CT of the Abdomen and Pelvis WITHOUT and WITH intravenous contrast. Water was used for enteric contrast. The exam was performed according to our department dose-optimization protocol, which includes automated exposure control, adjustments of mA and kV according to patient size. Iterative reconstructions are also sometimes employed. FINDINGS: THORAX: No mediastinal, hilar, supraclavicular, or axillary lymphadenopathy is demonstrated. No suspicious pulmonary nodule or mass is demonstrated. There is no pleural effusion or suspicious pleural nodularity. Thyroid gland is diffusely enlarged extending deep to the manubrium. Both lobes measure approximately 6.5 x 2.8 x 3.9 cm. No thyroid nodules are demonstrated. Esophagus is unremarkable. Heart and pericardium are unremarkable. Mild calcified plaque of the thoracic aorta demonstrated. Thoracic aorta and main pulmonary artery normal in caliber. ABDOMEN and PELVIS: There is a metallic stent in the common bile duct extending into the third part of the duodenum with expected pneumobilia. The intrahepatic bile ducts are not dilated. There is suggestion of thickening of the ampulla, though this is not well visualized because of the presence of the metallic stent. No pancreatic mass or pancreatic ductal dilatation is demonstrated. No upper abdominal lymphadenopathy. No suspicious liver lesion. Spleen, adrenal glands, kidneys, bladder, and prostate gland are unremarkable. No pelvic or retroperitoneal lymphadenopathy. There is scattered mild calcified plaque of the abdominal aorta and iliac arteries. Stomach and jejunal and ileal loops are unremarkable. There is diffuse mild increase in colonic stool burden. Diverticulosis of the sigmoid colon noted. No peritoneal free fluid. BONES: No suspicious osseous lesion demonstrated. IMPRESSION: No evidence of metastasis in the chest, abdomen, or pelvis. Diffusely enlarged and nonnodular thyroid gland. Metallic stent in the common bile duct extending into the third part of the duodenum. No biliary ductal dilatation. Signed: Timbo Hill MD Report Verified Date/Time: 08/25/2017 17:40:28 Reading Location: [facility] C013Y CT Body Reading Room Performing Organization Address [facility] Phone Number RIS * Type and screen, automated (08/25/2017 1:24 PM CDT) ABO/RH AUTOMATED (BEAKER) O POSITIVE [facility] Ab Scrn NEGATIVE [facility] Specimen Blood Performing Organization Address [facility] Phone Number [place] [phone] [place] [address] [facility] * Prothrombin time/INR (08/25/2017 1:24 PM CDT) Protime 14.8 (H) 11.7 - 14.[address] [facility] INR 1.2 <=[address]9 [facility] Specimen Blood Narrative Performed At RECOMMENDED COUMADIN/WARFARIN INR THERAPY RANGES [facility] STANDARD DOSE: 2.0 - 3.0 Includes: PROPHYLAXIS for venous thrombosis, [facility] systemic embolization; TREATMENT for venous thrombosis and/or pulmonary embolus. HIGH RISK: Target INR is 2.5-3.5 for patients with mechanical heart valves. Performing Organization Address [facility] Phone Number [facility] [address] [place] [address] [phone] [address] * Prealbumin (08/25/2017 1:24 PM CDT) Prealbumin 22 14 - 45 mg/dL [facility] Specimen Blood Performing Organization Address City/State/Zipcode Phone Number [facility] [address] [place] [address] [phone] [address] * REPORT OF PROCEDURE - ENDOSCOPY URL (08/03/2017 3:42 PM CDT) Narrative Performed At * [place] Endoscopic Retrograde Cholangiopancreatography (08/03/2017 3:40 PM CDT) Narrative Performed At FINAL REPORT GE RIS Fluoroscopic images were acquired for procedural assistance. Fluoroscopy time 2.2 minutes. Fluoroscopic images 4. Fluoroscopy was used during endoscopic retrograde cholangiogram and placement of a second stent in the distal common bile duct. Because images were not submitted for interpretation, see separate report by the referring physician for clinical details and imaging interpretation. Signed: Timbo Hill MD Report Verified Date/Time:08/03/2017 16:34:57 Reading Location: [address] Radiology Reading Room Procedure Note Interface, External Ris In - 08/03/2017 4:37 PM CDT FINAL REPORT Fluoroscopic images were acquired for procedural assistance. Fluoroscopy time 2.2 minutes. Fluoroscopic images 4. Fluoroscopy was used during endoscopic retrograde cholangiogram and placement of a second stent in the distal common bile duct. Because images were not submitted for interpretation, see separate report by the referring physician for clinical details and imaging interpretation. Signed: Timbo Hill MD Report Verified Date/Time: 08/03/2017 16:34:57 Reading Location: [address] Radiology Reading Room Performing Organization Address City/State/Zipcode Phone Number GE RIS after 05/05/2017 Insurance Payer Benefit Subscriber ID Type Phone Address Plan / Group [facility] Advance Directives For more information, please contact: [facility] [address] [place] [address] Date Inactivated Comments Code Status Date Activated 09/15/2017 5:56 PM Full Code 09/09/2017 6:42 AM This code status was determined by: Patient
--- OUTSIDE RECORDS SUMMARY | 2018-05-06 08:39 | XMS REPORT ---
Author Author [facility] Address Unknown Phone Unavailable Care Team Providers Care J2Ee Java Developer Name Role Phone LORRI GUTIERREZ Unavailable Unavailable SEMAJ ARITA Unavailable Unavailable ABDIRAHMAN ZAMUDIO Unavailable Unavailable Senia BUENO Unavailable Unavailable Problems This patient has no known problems. Allergies, Adverse Reactions, Alerts This patient has no known allergies or adverse reactions. Medications This patient has no known medications. Results Test Description Test Time Test Comments Text Results Atomic Results Result Comments CHEST 2 VIEWS 2018-05-03 17:17:00 [place] [id number] Patient Name: VINAYAK KERR MR #: [id number] : 1945 Age/Sex: 73/M Req #: [id number] Adm Physician: Ordered by: LORRI GUTIERREZ MD Report #: [id number] Location: OR Room/Bed: Procedure: [id number] DX/CHEST 2 VIEWS Exam Date: Exam Time: REPORT STATUS: Signed EXAM: XR CHEST 2 VIEWS DATE: 05/03/2018 4:43 PM INDICATION: Preopera tive, pain COMPARISON: None FINDINGS: Lines and Tubes: None Heart and Mediastinum: No acute cardiomediastinal findings. Tortuosity descending thoracic aorta. Lungs and Pleura: No significant pleural effusion, pneumothorax, or focal consolidation. Bones and Soft Tissues: Degenerative changes spine. IMPRESSION: 1. No acute cardiopulmonary findings. Signed by: Dr. Marko Pereira MD on 05/03/2018 5:18 PM Dictated By: MARKO PEREIRA MD 17 Transcribed By: ROMAINE on 05/03/181717 COPY TO: LORRI GUTIERREZ MD SACRUM X-RAY 2018-02-15 15:09:00 [place] [id number] Patient Name: VINAYAK KERR MR #: [id number] : 1945 Age/Sex: 73/M Req #: [id number] Adm Physician: Ordered by: LORRI GUTIERREZ MD Report #: [id number] Location: [facility] Room/Bed: Procedure: [id number] DX/SACRUM X-RAY Exam Date: Exam Time: REPORT STATUS: Signed EXAMINATION: Pelvis and sacrum Films CLINICAL HISTORY:Bladder problems, n euromuscular dysfunction of bladder, unspecified COMPARISON: None. DISCUSSION: Generalized osteopenia. No acute, displaced fractures or dislocations. Mild degenerative changes in bilateral hip and sacroiliac joints. No gross soft tissue abnormalities. No osteolytic or osteoblastic lesions. Sacral arches are preserved. Neurostimulator device in the soft tissues of the left lower back/upper gluteal region, with wire likely traversing the right S4 foramen. Moderate degenerative disc changes at L4-L5 and L5-S1. IMPRESSION: 1. No acute abnormalities. 2. Neural stimulator device in the left lower back/upper gluteal region, with wire likely traversing the right S4 neural foramen Signed by: Dr. Heriberto Purdy M.D. on 02/15/2018 3:17 PM Dictated By: HERIBERTO PURDY MD 16 Transcribed By: ROMAINE on 02/15/181516 COPY TO: LORRI GUTIERREZ MD PELVIS AP 1-2 VIEWS 2018-02-15 15:09:00 [place] [address] Patient Name: VINAYAK KERR MR #: [id number] : 1945 Age/Sex: 73/M Req #: [id number] Adm Physician: Ordered by: LORRI GUTIERREZ MD Report #: [id number] Location: [facility] Room/Bed: Procedure: [id number] DX/PELVIS AP 1-2 VIEWS Exam Date: Exam Time: REPORT STATUS: Signed EXAMINATION: Pelvis and sacrum Films CLINICAL HISTORY:Bladder pr oblems, neuromuscular dysfunction of bladder, unspecified COMPARISON: None. DISCUSSION: Generalized osteopenia. No acute, displaced fractures or dislocations. Mild degenerative changes in bilateral hip and sacroiliac joints. No gross soft tissue abnormalities. No osteolytic or osteoblastic lesions. Sacral arches are preserved. Neurostimulator device in the soft tissues of the left lower back/upper gluteal region, with wire likely traversing the right S4 foramen. Moderate degenerative disc changes at L4-L5 and L5-S1. IMPRESSION: 1. No acute abnormalities. 2. Neural stimulator device in the left lower back/upper gluteal region, with wire likely traversing the right S4 neural foramen Signed by: Dr. Heriberto Purdy M.D. on 02/15/2018 3:17 PM Dictated By: HERIBERTO PURDY MD 16 Transcribed By: ROMAINE on 02/15/181516 COPY TO: LORRI GUTIERREZ MD BLOOD CULTURE 2017-09-30 00:00:00 CULTURE (BEAKER) (test qypb=4775) No growth in 5 days NOT DETECTEDPanel is negative for BioFire BCID-detectable organisms. Please refe r to traditional culture and sensitivity results as they become available.Other organisms and resistance markers not contained in this PCR panel cannot be exclu ded and follow-up of traditional culture results is required. This sample was t ested at the [facility] Clinical Microbiology Laboratory using the PPI FilmArray Blood Culture ID Panel. This test is FDA cleared for in vitro diagnostic use and has been verified and approved by the [facility] Clinical Microbiology laboratory for clinical use. Reference Range: Not DetectedMISCELLANEOUS LAB [id number] 14:30:00* Test Item Value Reference Range Comments SCAN RESULT (test kdnb=[id number]) Result comments: NOT DETECTED Panel is negative for BioFire BCID-detectable orga nisms. Please refer to traditional culture and sensitivity results as they becom e available. Other organisms and resistance markers not contained in this PCR pa danilo cannot be excluded and follow-up of traditional culture results is required. This sample was tested at the [facility] Clinical Microbiology Laboratory using the [employer] Laboratoriesfire FilmArray Blood Culture ID Panel. This test is FDA cleared for in vitro diagnostic use and has been verified and approved by the [facility] Clinical Microb iology laboratory for clinical use. Reference Range: Not Detected URINE CULTURE 2017-09-27 12:15:00* Test Item Value Reference Range Comments CULTURE (BEAKER) (test pdud=6420) COAGULASE NEGATIVE STAPHYLOCOCCUS >100,000 col/mL Coagulase negative Staphylococcus Clindamycin (test code=10) Erythromycin (test code=4) Linezolid (test code=40) Nitrofurantoin (test code=23) Oxacillin (test code=14) Rifampin (test code=43) Tetracycline (test code=2) Trimethoprim + Sulfamethoxazole (test code=47) Vancomycin (test code=13) CT, [id number] 17:36:00Reason for exam:->Abd painWhat is the patient's sedation requirement?->No SedationFINAL REPORT CT scan of the abdomen and [...] seen. Bone windows demonstrate degenerative changes. A stim ulation device is seen in the buttock region with a wire extending to the pelvis . IMPRESSION:1. Tiny nodules in the right lung base.2. Status post Whipple proce dure with two small loculated areas of fluid in the surgical bed.3. Distended, f luid-filled stomach and a gastric outlet obstruction cannot be excluded.4. Areas of stranding and some small lymph nodes at the site of surgery which could be f ollowed up.5. Small amount of gas in the bladder. Correlation with urinalysis co uld be made. Signed: Greg Ceron MDReport Verified Date/Time: 09/24/2017 17 :36:36 Reading Location: [facility] B1 C013X Ortho Consult Reading Room Electronic ally signed by: GREG CERON M.D. on 09/24/2017 05:36 PM URINALYSIS W/ [id number] 16:07:00* Test Item Value Reference Range Comments COLOR (BEAKER) (test jinc=039) Yellow CLARITY (BEAKER) (test tgmo=598) Clear SPECIFIC GRAVITY UA (BEAKER) (test gezx=909) 1.007 1.001-1.035 PH UA (BEAKER) (test iznk=363) 7.0 5.0-8.0 PROTEIN UA (BEAKER) (test hedl=755) Negative Negative GLUCOSE UA (BEAKER) (test rgew=883) Negative Negative KETONES UA (BEAKER) (test otbc=430) Negative Negative BILIRUBIN UA (BEAKER) (test jduy=665) Negative Negative BLOOD UA (BEAKER) (test oxge=671) Negative Negative NITRITE UA (BEAKER) (test joku=581) Negative Negative LEUKOCYTE ESTERASE UA (BEAKER) (test jrsp=736) Moderate Negative UROBILINOGEN UA (BEAKER) (test jhuj=899) 0.2 mg/dL 0.2-1.0 RBC UA (BEAKER) (test gtyp=892) < /HPF WBC UA (BEAKER) (test wxbp=398) 4 /HPF MUCUS (BEAKER) (test ollt=2632) Rare SQUAMOUS EPITHELIAL (BEAKER) (test ssub=880) 1 /HPF SOURCE(BEAKER) (test pkls=8378) Urine, Voided CREATINE KINASE (CK), TOTAL AND [id number] 14:43:00* Test Item Value Reference Range Comments CREATINE KINASE TOTAL (BEAKER) (test kdxn=582) 11 U/L 29-200 CREATINE KINASE-MB (BEAKER) (test vsiu=878) 0.7 ng/mL 0.0-6.6 CREATINE KINASE-MB INDEX (BEAKER) (test zcnw=792) 6.4 % CK-MB Reference Range:<6.7 Normal6.7-10.0 Borderline>10.0 Abnormal TROPONIN [id number] 14:33:00* Test Item Value Reference Range Comments TROPONIN I (BEAKER) (test wrav=863) < ng/mL 0.00-0.03 Troponin I (TnI) levels must be interpreted in the context of the presenting sym ptoms and the clinical findings. Elevated TnI levels indicate myocardial damage, but are not specific for ischemic heart disease. Elevated TnI levels are seen in patients with other cardiac conditions (including myocarditis and congestive h eart failure), and slight TnI elevations occur in patients with other conditions , including sepsis, renal failure, acidosis, acute neurological disease, and per sistent tachyarrhythmia.HEPATIC FUNCTION [id number] 14:25:00* Test Item Value Reference Range Comments TOTAL PROTEIN (BEAKER) (test stcq=066) 6.6 gm/dL 6.0-8.3 ALBUMIN (BEAKER) (test cuem=5174) 3.5 g/dL 3.5-5.0 BILIRUBIN TOTAL (BEAKER) (test nhxq=038) 0.3 mg/dL 0.2-1.2 BILIRUBIN DIRECT (BEAKER) (test ehgs=405) 0.2 mg/dL 0.1-0.5 ALKALINE PHOSPHATASE (BEAKER) (test bcmz=077) 100 U/L 40-150 AST (SGOT) (BEAKER) (test mpvl=603) 14 U/L 5-34 ALT (SGPT) (BEAKER) (test lisw=496) 8 U/L 6-55 BASIC METABOLIC [id number] 14:25:00* Test Item Value Reference Range Comments SODIUM (BEAKER) (test ogmm=660) 137 meq/L 136-145 POTASSIUM (BEAKER) (test cden=944) 4.4 meq/L 3.5-5.1 CHLORIDE (BEAKER) (test jdhn=156) 101 meq/L 98-107 CO2 (BEAKER) (test ewgo=514) 28 meq/L 22-29 BLOOD UREA NITROGEN (BEAKER) (test cvhs=519) 11 mg/dL 7-21 CREATININE (BEAKER) (test oayn=439) 0.74 mg/dL 0.57-1.25 GLUCOSE RANDOM (BEAKER) (test qboi=653) 155 mg/dL 70-105 CALCIUM (BEAKER) (test omyl=700) 9.0 mg/dL 8.4-10.2 EGFR (BEAKER) (test xkrn=8599) 104 mL/min/1.73 sq m ESTIMATED GFR IS NOT ACCURATE CREATININE CLEARANCE IN PREDICTING GLOMERULAR FILTRATION RATE. ESTIMATED GFR IS NOT APPLICABLE FOR DIALYSIS PATIENTS. CBC W/PLT COUNT & AUTO [id number] 14:02:00* Test Item Value Reference Range Comments WHITE BLOOD CELL COUNT (BEAKER) (test pwmg=599) 8.1 K/ L 3.5-10.5 RED BLOOD CELL COUNT (BEAKER) (test zgvh=547) 3.95 M/ L 4.63-6.08 HEMOGLOBIN (BEAKER) (test jgob=120) 11.7 GM/DL 13.7-17.5 HEMATOCRIT (BEAKER) (test rpae=911) 36.7 % 40.1-51.0 MEAN CORPUSCULAR VOLUME (BEAKER) (test ktim=136) 92.9 fL 79.0-92.2 MEAN CORPUSCULAR HEMOGLOBIN (BEAKER) (test lckk=584) 29.6 pg 25.7-32.2 MEAN CORPUSCULAR HEMOGLOBIN CONC (BEAKER) (test hyvp=305) 31.9 GM/DL 32.3-36.5 RED CELL DISTRIBUTION WIDTH (BEAKER) (test utpl=818) 14.0 % 11.6-14.4 PLATELET COUNT (BEAKER) (test prsb=579) 563 K/CU MM 150-450 MEAN PLATELET VOLUME (BEAKER) (test bjcc=613) 8.6 fL 9.4-12.4 NUCLEATED RED BLOOD CELLS (BEAKER) (test qefo=002) 0 /100 WBC 0-0 NEUTROPHILS RELATIVE PERCENT (BEAKER) (test pbtr=350) 73 % LYMPHOCYTES RELATIVE PERCENT (BEAKER) (test bbtk=655) 13 % MONOCYTES RELATIVE PERCENT (BEAKER) (test ncgb=931) 8 % EOSINOPHILS RELATIVE PERCENT (BEAKER) (test ubfq=228) 4 % BASOPHILS RELATIVE PERCENT (BEAKER) (test pbeg=266) 1 % NEUTROPHILS ABSOLUTE COUNT (BEAKER) (test wtpq=861) 5.92 K/ L 1.78-5.38 LYMPHOCYTES ABSOLUTE COUNT (BEAKER) (test zrif=449) 1.05 K/ L 1.32-3.57 MONOCYTES ABSOLUTE COUNT (BEAKER) (test yicx=999) 0.65 K/ L 0.30-0.82 EOSINOPHILS ABSOLUTE COUNT (BEAKER) (test hxrp=674) 0.36 K/ L 0.04-0.54 BASOPHILS ABSOLUTE COUNT (BEAKER) (test ljsx=988) 0.04 K/ L 0.01-0.08 IMMATURE GRANULOCYTES-RELATIVE PERCENT (BEAKER) (test oclf=3872) 1 % 0-1 POCT-LACTIC ACID, [id number] 13:56:00* Test Item Value Reference Range Comments POC-LACTIC ACID, VENOUS (BEAKER) (test rfba=4194) 0.7 mmol/L 0.9-1.7 TESTED AT [facility] [address] [facility] [address] ANAEROBIC [id number] 03:37:00* Test Item Value Reference Range Comments CULTURE (BEAKER) (test ewzd=7729) <1+ Anaerobic gram negative rodsSame as first isolate. TISSUE [id number] 12:08:00Surgical Pathology Report Case: [id number] Authorizing Provider: Jermain Zamudio MD Collected: 09/09/2017 0925 Ordering Location: [facility] Received: 09/09/2017 1142 SERVICES Pathologist: Aster Mtz MD Specimens: A) - Lymph Node, Hepatic Artery Lymph Node B) - Gallbladder C) - Node, CYSTIC NODE D) - Pancreas, WHIPPLE SPECIMEN ( LONG STITCH SMA MARGINS) (SHORT STITCH -PANCREATIC NECK0 (BLUE STITCH IS BILE DUCT) A. LYMPH NODES, HEPATIC ARTERY, EXCISION:- ONE BENIGN LYMPH NODE B. GALLBLADDER, CHOLECYSTECTOMY:- GALLBLADDER WITH ACUTE AND CHRONIC INFLAMMATION- NEGATIVE FOR INTESTINAL METAPLASIA, DYSPLASIA OR CARCINOMAC. LYMPH NODES, CYSTIC DUCT, DISSECTION:- ONE BENIGN LYMPH NODE D. 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 A. [id number]. 14792L. 74742C. 62581, 14470, 76710 x2A. Lymph node; B. Gallbladder; C. Node; D. Pancreas The specimen is received in four parts labeled with the patient's info rmation and given accession number which corresponds to the requisition slip wit h the same name and number.A. Received in formalin labeled "lymph node" is a 2.0 x 1.0 x 0.5 cm, clemons-yellow, irregular, soft tissue, which is bisected and submi tted entirely in a single cassette, A1.B. Received in formalin labeled "gallblad aren" is a 10.5 cm in length x 3.1 cm in average circumference gallbladder to inc lude 2.0 cm in length x 0.2 cm in diameter cystic duct. The external surface is clemons-pink to focally brownish smooth and glistening. The specimen is opened to re veal clemons-brown, smooth and glistening mucosal surface. No hemorrhage, necrosis, calculi or lesions are identified. The wall thickness measuring up to 0.2 cm in average thickness. A Class Lineman sections are submitted as follows: B1, cystic duct; B2, manufacturers service representative sections of the gallbladder wall (fundus, body and neck ).C. Received in formalin labeled "cystic node tissue" is a 2.0 x 1.0 x 0.5 cm, clemons-brown, irregular, soft tissue. One possible lymph node measuring 0.4 x 0.2 x 0.2 cm is identified. The lymph node is bisected and submitted in cassette C1, and the rest of the is submitted in cassette C2. MH/Sandy. Received fresh for intr aoperative consultation labeled "Whipple specimen" is a Whipple resection specim en including duodenum, head of pancreas and common bile duct stump. The duodenum is 23 cm in length and is 7.0 cm in average diameter circumference and 0.7 cm a verage wall thickness. The pancreas is 3.5 cm in length and is 4.2 x 4.0 x 3.1 c m in cross sectional area. The common bile duct stump is 0.6 cm in length and 0. 3 cm in diameter at the margin. Ink code: green, SMA margin and lumen of common bile duct; red, pancreatic neck margin and luminal pancreatic duct; red, pancrea tic neck margin and luminal pancreatic duct; yellow, vascular groove; black, pos terior pancreatic surface; blue, anterior pancreatic surface. Gross photographs are taken.Bivalving the pancreas reveals a 2.9 x 2.6 x 2.5cm solid clemons-pink mass centered around the ampulla. The mass is located 7 cm from the proximal duodenal resection margin, 15 cm from the distal duodenal margin, 5 cm from the uncinate margin and 5.5 cm from the common bile duct margin. The pancreatic duct is pat ent. The common bile duct is patent with 7 cm in length x 0.1 cm in diameter claire nt in place. The posterior surface is clemons-yellow, lobulated and fatty. The anter ior surface is clemons-pink and smooth. The mass does not appear to involve the ante rior or posterior surfaces.The uninvolved pancreas is clemons-yellow and soft. The d uodenal mucosa is clemons-pink and smooth with irregular mucosal folds. Five possibl e lymph nodes are identified in the soft tissue around the organs, ranging from 0.5 cm to 2.5 cm in greatest dimension. Gross photographs were taken.Section cod e: FSD1, pancreatic neck resection margin, en face; FSD2, common bile duct adela n, en face; D3, cystic duct margin, en face; D4-D17, ampullary mass, sequentiall y submitted around the common bile duct; D18, D19, manufacturers service representative sections of th e soft tissue of pancreaticoduodenal groove; D20, D21, manufacturers service representative sections o f the anterior pancreas (uninvolved); D22, D23, posterior pancreas, uninvolved; D24, D25, peripancreatic lymph node, bisected; D26, D27, peripancreatic lymph no juan (three lymph nodes in each); D28, four possible lymph nodes, peripancreatic. D29, D30, proximal duodenal resection margin, en face, D31-D33 distal duodnal r esection margin, D34-D39 uncinate pancreatic margin (perpendicular). D40-D42. Ad ditional sections of pancreas with bile duct. MA/pl/ewHEAD OF PANCREAS, DUODENU M, WHIPPLE [id number]: PANCREATIC NECK MARGIN- NEGATIVE FOR [id number] S: BILE DUCT MARGINS- NEGATIVE FOR CARCINOMA(A-D): Microscopic examination is pe rformed and the findings are incorporated in the diagnostic line. POCT-GLUCOSE [id number] 12:17:00* Test Item Value Reference Range Comments POC-GLUCOSE METER (BEAKER) (test gzzj=3804) 224 mg/dL 70-110 TESTED AT [facility] [address] [facility] [address] POCT-GLUCOSE [id number] 08:04:00* Test Item Value Reference Range Comments POC-GLUCOSE METER (BEAKER) (test bwxk=2053) 189 mg/dL 70-110 TESTED AT [facility] [address] [facility] [address] BASIC METABOLIC [id number] 06:58:00* Test Item Value Reference Range Comments SODIUM (BEAKER) (test xzvd=629) 139 meq/L 136-145 POTASSIUM (BEAKER) (test axgt=648) 4.1 meq/L 3.5-5.1 CHLORIDE (BEAKER) (test fyea=798) 105 meq/L 98-107 CO2 (BEAKER) (test mhet=411) 27 meq/L 22-29 BLOOD UREA NITROGEN (BEAKER) (test mjsy=289) 6 mg/dL 7-21 CREATININE (BEAKER) (test asxt=399) 0.55 mg/dL 0.57-1.25 GLUCOSE RANDOM (BEAKER) (test gykd=628) 184 mg/dL 70-105 CALCIUM (BEAKER) (test guwc=477) 7.9 mg/dL 8.4-10.2 EGFR (BEAKER) (test cawl=0596) 146 mL/min/1.73 sq m ESTIMATED GFR IS NOT ACCURATE CREATININE CLEARANCE IN PREDICTING GLOMERULAR FILTRATION RATE. ESTIMATED GFR IS NOT APPLICABLE FOR DIALYSIS PATIENTS. [id number] 06:44:00* Test Item Value Reference Range Comments PHOSPHORUS (BEAKER) (test okpo=510) 2.8 mg/dL 2.3-4.7 [id number] 06:44:00* Test Item Value Reference Range Comments MAGNESIUM (BEAKER) (test qldl=157) 2.1 mg/dL 1.6-2.6 CBC (HEMOGRAM ONLY)2017-09-15 06:32:00* Test Item Value Reference Range Comments WHITE BLOOD CELL COUNT (BEAKER) (test rrpy=921) 8.1 K/ L 3.5-10.5 RED BLOOD CELL COUNT (BEAKER) (test mcji=251) 3.12 M/ L 4.63-6.08 HEMOGLOBIN (BEAKER) (test rsdw=510) 9.9 GM/DL 13.7-17.5 HEMATOCRIT (BEAKER) (test zixp=116) 30.0 % 40.1-51.0 MEAN CORPUSCULAR VOLUME (BEAKER) (test gpef=927) 96.2 fL 79.0-92.2 MEAN CORPUSCULAR HEMOGLOBIN (BEAKER) (test sflh=778) 31.7 pg 25.7-32.2 MEAN CORPUSCULAR HEMOGLOBIN CONC (BEAKER) (test pgsy=734) 33.0 GM/DL 32.3-36.5 RED CELL DISTRIBUTION WIDTH (BEAKER) (test ztyw=235) 14.6 % 11.6-14.4 PLATELET COUNT (BEAKER) (test mxsc=037) 230 K/CU MM 150-450 MEAN PLATELET VOLUME (BEAKER) (test ygps=459) 9.3 fL 9.4-12.4 NUCLEATED RED BLOOD CELLS (BEAKER) (test gxch=861) 0 /100 WBC 0-0 POCT-GLUCOSE [id number] 23:21:00* Test Item Value Reference Range Comments POC-GLUCOSE METER (BEAKER) (test ryhp=4518) 107 mg/dL 70-110 TESTED AT [address] [address] [id number] 22:30:00* Test Item Value Reference Range Comments POTASSIUM (BEAKER) (test otjr=406) 3.7 meq/L 3.5-5.1 Please check once IV potassium repletion completePOCT-GLUCOSE [id number] 16:55:00* Test Item Value Reference Range Comments POC-GLUCOSE METER (BEAKER) (test tauf=5915) 84 mg/dL 70-110 TESTED AT [place] [id number] [facility] [address] POCT-GLUCOSE [id number] 12:04:00* Test Item Value Reference Range Comments POC-GLUCOSE METER (BEAKER) (test nvot=6453) 96 mg/dL 70-110 TESTED AT [address] [address] POCT-GLUCOSE [id number] 05:44:00* Test Item Value Reference Range Comments POC-GLUCOSE METER (BEAKER) (test npwq=0703) 72 mg/dL 70-110 TESTED AT [facility] [address] [facility] [address] BASIC METABOLIC [id number] 05:21:00* Test Item Value Reference Range Comments SODIUM (BEAKER) (test jysu=193) 143 meq/L 136-145 POTASSIUM (BEAKER) (test zlpr=015) 3.1 meq/L 3.5-5.1 CHLORIDE (BEAKER) (test blet=323) 104 meq/L 98-107 CO2 (BEAKER) (test tumy=080) 28 meq/L 22-29 BLOOD UREA NITROGEN (BEAKER) (test lwhg=182) 13 mg/dL 7-21 CREATININE (BEAKER) (test xvjz=276) 0.56 mg/dL 0.57-1.25 GLUCOSE RANDOM (BEAKER) (test oywy=935) 75 mg/dL 70-105 CALCIUM (BEAKER) (test hlsx=644) 7.8 mg/dL 8.4-10.2 EGFR (BEAKER) (test yhie=4699) 143 mL/min/1.73 sq m ESTIMATED GFR IS NOT ACCURATE CREATININE CLEARANCE IN PREDICTING GLOMERULAR FILTRATION RATE. ESTIMATED GFR IS NOT APPLICABLE FOR DIALYSIS PATIENTS. [id number] 05:17:00* Test Item Value Reference Range Comments PHOSPHORUS (BEAKER) (test cwcs=012) 3.4 mg/dL 2.3-4.7 [id number] 05:17:00* Test Item Value Reference Range Comments MAGNESIUM (BEAKER) (test vbbz=804) 1.8 mg/dL 1.6-2.6 CBC (HEMOGRAM ONLY)2017-09-14 05:12:00* Test Item Value Reference Range Comments WHITE BLOOD CELL COUNT (BEAKER) (test ucck=273) 4.1 K/ L 3.5-10.5 RED BLOOD CELL COUNT (BEAKER) (test deyf=839) 3.05 M/ L 4.63-6.08 HEMOGLOBIN (BEAKER) (test iuuy=970) 9.4 GM/DL 13.7-17.5 HEMATOCRIT (BEAKER) (test uvdy=995) 28.8 % 40.1-51.0 MEAN CORPUSCULAR VOLUME (BEAKER) (test xrbr=349) 94.4 fL 79.0-92.2 MEAN CORPUSCULAR HEMOGLOBIN (BEAKER) (test tspc=549) 30.8 pg 25.7-32.2 MEAN CORPUSCULAR HEMOGLOBIN CONC (BEAKER) (test nkyp=114) 32.6 GM/DL 32.3-36.5 RED CELL DISTRIBUTION WIDTH (BEAKER) (test cwix=263) 14.9 % 11.6-14.4 PLATELET COUNT (BEAKER) (test bhut=025) 225 K/CU MM 150-450 MEAN PLATELET VOLUME (BEAKER) (test tnzr=527) 9.4 fL 9.4-12.4 NUCLEATED RED BLOOD CELLS (BEAKER) (test fsyz=761) 0 /100 WBC 0-0 POCT-GLUCOSE [id number] 23:24:00* Test Item Value Reference Range Comments POC-GLUCOSE METER (BEAKER) (test whrz=2807) 94 mg/dL 70-110 TESTED AT [facility] [address] [facility] [address] POCT-GLUCOSE [id number] 17:43:00* Test Item Value Reference Range Comments POC-GLUCOSE METER (BEAKER) (test zmvt=4363) 104 mg/dL 70-110 TESTED AT [place] [id number] [facility] [address] [id number] 13:50:00* Test Item Value Reference Range Comments PHOSPHORUS (BEAKER) (test phzy=872) 2.3 mg/dL 2.3-4.7 [id number] 13:50:00* Test Item Value Reference Range Comments MAGNESIUM (BEAKER) (test htmh=718) 2.2 mg/dL 1.6-2.6 BASIC METABOLIC [id number] 13:50:00* Test Item Value Reference Range Comments SODIUM (BEAKER) (test lwes=849) 142 meq/L 136-145 POTASSIUM (BEAKER) (test hwfu=709) 3.9 meq/L 3.5-5.1 CHLORIDE (BEAKER) (test wijm=758) 100 meq/L 98-107 CO2 (BEAKER) (test yzue=762) 33 meq/L 22-29 BLOOD UREA NITROGEN (BEAKER) (test qqwj=612) 17 mg/dL 7-21 CREATININE (BEAKER) (test nqpp=842) 0.62 mg/dL 0.57-1.25 GLUCOSE RANDOM (BEAKER) (test egxp=795) 109 mg/dL 70-105 CALCIUM (BEAKER) (test nlvp=976) 8.3 mg/dL 8.4-10.2 EGFR (BEAKER) (test krtv=7636) 128 mL/min/1.73 sq m ESTIMATED GFR IS NOT ACCURATE CREATININE CLEARANCE IN PREDICTING GLOMERULAR FILTRATION RATE. ESTIMATED GFR IS NOT APPLICABLE FOR DIALYSIS PATIENTS. POCT-GLUCOSE [id number] 12:53:00* Test Item Value Reference Range Comments POC-GLUCOSE METER (BEAKER) (test rsob=5153) 119 mg/dL 70-110 TESTED AT [address] [address] CBC (HEMOGRAM ONLY)2017-09-13 06:30:00* Test Item Value Reference Range Comments WHITE BLOOD CELL COUNT (BEAKER) (test kkkb=514) 4.0 K/ L 3.5-10.5 RED BLOOD CELL COUNT (BEAKER) (test vusy=168) 3.38 M/ L 4.63-6.08 HEMOGLOBIN (BEAKER) (test rhjj=703) 10.7 GM/DL 13.7-17.5 HEMATOCRIT (BEAKER) (test rdgg=327) 32.4 % 40.1-51.0 MEAN CORPUSCULAR VOLUME (BEAKER) (test kwsk=250) 95.9 fL 79.0-92.2 MEAN CORPUSCULAR HEMOGLOBIN (BEAKER) (test zfog=371) 31.7 pg 25.7-32.2 MEAN CORPUSCULAR HEMOGLOBIN CONC (BEAKER) (test nrrc=265) 33.0 GM/DL 32.3-36.5 RED CELL DISTRIBUTION WIDTH (BEAKER) (test teym=976) 15.2 % 11.6-14.4 PLATELET COUNT (BEAKER) (test nddk=715) 252 K/CU MM 150-450 MEAN PLATELET VOLUME (BEAKER) (test ehbt=466) 9.3 fL 9.4-12.4 NUCLEATED RED BLOOD CELLS (BEAKER) (test rbvc=504) 0 /100 WBC 0-0 POCT-GLUCOSE [id number] 05:22:00* Test Item Value Reference Range Comments POC-GLUCOSE METER (BEAKER) (test gtpb=6706) 121 mg/dL 70-110 TESTED AT [facility] [address] [facility] [address] POCT-GLUCOSE [id number] 22:58:00* Test Item Value Reference Range Comments POC-GLUCOSE METER (BEAKER) (test jsit=0815) 180 mg/dL 70-110 TESTED AT [facility] [address] [facility] [address] BLOOD GAS, [id number] 22:47:00* Test Item Value Reference Range Comments PH ARTERIAL (BEAKER) (test rbnu=936) 7.48 7.35-7.45 PCO2 ARTERIAL (BEAKER) (test mbwi=329) 44 mmHg 35-45 PO2 ARTERIAL (BEAKER) (test wnul=458) 58 mmHg 80-90 O2 SATURATION ARTERIAL (BEAKER) (test ldvw=361) 91.9 % 96.0-97.0 HCO3 ARTERIAL (BEAKER) (test cjen=555) 32 mmol/L 21-29 BASE EXCESS ARTERIAL (BEAKER) (test qjrl=235) 7.0 mmol/L -2.0-3.0 PATIENT TEMPERATURE (BEAKER) (test yjxw=3147) 36.[address], [id number] 21:35:00FINAL REPORT EXAM: CT of the abdomen and pelvis, with contrast 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 Presents with abdominal distention. TECHNIQUE: CT of the abdomen and pelvis was performed with intravenous contrast administration. This exam was performed according to our departmental dose optimization program which includes automated exposure control, adjustment of the mA and/or kV according to patient's size and/or use of iterative reconstructive technique. COMPARISON: CT abdomen and pelvis 08/25/2017. FINDINGS: LOWER CHEST: Mild dilatation of the distal esophagus. Bibasilar subsegmental and discoid atelectasis. Superimposed left lower lobe pneumonia cannot be excluded.LIVER: Within normal limits.PANCREAS, GALLBLADDER/BILE DUCTS: Interval Whipple's surgery. Interval removal of biliary stent. Mild biliary ductal dilatation. Pneumobilia. Status post cholecystectomy. SPLEEN: Within normal limits.ADRENALS: Within normal limits.KIDNEYS/URETERS: Subcentimeter h ypodensities too small to characterize. No hydroureteronephrosis or radiopaque s tones. URINARY BLADDER: Within normal limits.REPRODUCTIVE ORGANS: Within normal limits. BOWEL/MESENTERY: Interval Whipple's surgery. Marked gastric dilatation. Multiple dilated loops of fluid-filled jejunal loops in the right and lower abdo men, with decompressed loops in the left lower quadrant, which may represent a s mall bowel obstruction (early complete or partial). A definite transition point is not seen but one is suspected in the left para midline lower abdomen (image 6 6). Diffuse mesenteric congestion. Sigmoid diverticulosis without acute divertic ulitis. PERITONEUM/RETROPERITONEUM: Extensive free intraperitoneal air which may be related to recent surgery however perforated viscus is not excluded. No fluid collection. Trace lower abdominal and pelvic free fluid. VESSELS: Mild atheros clerotic of the aorta and branches. LYMPH NODES: No abdominal or pelvic lymphade nopathy.SOFT TISSUES:. Foci of air and fatty stranding in the anterior abdominal wall likely to recent surgery. Neurostimulator device in the left gluteal muscu lature with leads in the right sacral region.BONES: Degenerative changes of the visualized spine. Generalized osteopenia. IMPRESSION: Interval Whipple's surg mani. Marked gastric dilatation. Multiple dilated fluid-filled small bowel loops suspicious for small bowel obstruction (early complete or partial). A definite t ransition point is not identified however one is suspected in the left para midl ine lower abdomen. Differential diagnoses is an ileus. Extensive free intraperit perez air, which may be due to recent surgery however a perforated viscus cannot be entirely excluded. Trace lower abdominal and pelvic free fluid. No fluid col lection. Bibasilar subsegmental and discoid atelectasis. Superimposed left lower lobe pneumonia cannot be excluded. Signed: Marzena Millan MDReport Verified Date /Time: 09/12/2017 21:35:51 Reading Location: [facility] C0T Transitional Reading Room P M TROPONIN [id number] 18:23:00* Test Item Value Reference Range Comments TROPONIN I (BEAKER) (test sbfy=849) < ng/mL 0.00-0.03 Troponin I (TnI) levels must be interpreted in the context of the presenting sym ptoms and the clinical findings. Elevated TnI levels indicate myocardial damage, but are not specific for ischemic heart disease. Elevated TnI levels are seen in patients with other cardiac conditions (including myocarditis and congestive h eart failure), and slight TnI elevations occur in patients with other conditions , including sepsis, renal failure, acidosis, acute neurological disease, and per sistent tachyarrhythmia.POCT-GLUCOSE [id number] 17:21:00* Test Item Value Reference Range Comments POC-GLUCOSE METER (BEAKER) (test kkjg=8795) 163 mg/dL 70-110 TESTED AT [facility] [address] [facility] [address] RAD, ABDOMEN/KUB, 1 VIEW [id number] 17:15:00Reason for exam:->possible SBO FINAL REPORT Abdomen One View: Reason for Exam: SBO John rison studies: CT, 08/25/2017 Discussion: There is a relative lack of bowel gas i n the left mid and upper abdomen, possibly a distended fluid-filled stomach. No obstruction is seen. No free intraperitoneal air is seen on the supine x-rays. T he bones are intact. A pelvic stimulator device is identified. Impression: No a cute radiographic abnormality. Signed: Emile Richardson MDReport Verified Date/Time : 09/12/2017 17:15:43 Reading Location: [address] Ortho Consult Reading Room ICALLY OBTAINED CULTURE + GRAM [id number] 15:42:00* Test Item Value Reference Range Comments CULTURE (BEAKER) (test txba=2174) PROTEUS MIRABILIS 1+ Proteus mirabilis Amikacin (test code=1) Ampicillin + Sulbactam (test code=6) Cefepime (test code=51) Cefoxitin (test code=68) Ceftazidime (test code=27) Ceftriaxone (test code=52) Ertapenem (test code=38) Gentamicin (test code=18) Levofloxacin (test code=22) Meropenem (test code=34) Piperacillin + Tazobactam (test code=29) Tetracycline (test code=2) Tobramycin (test code=25) Trimethoprim + Sulfamethoxazole (test code=47) CULTURE (BEAKER) (test suic=2491) SERRATIA MARCESCENS <1+ Serratia marcescensAmpC Positive Amikacin (test code=1) Aztreonam (test code=32) Cefepime (test code=51) Cefoxitin (test code=68) Ceftazidime (test code=27) Ceftriaxone (test code=52) Ertapenem (test code=38) Gentamicin (test code=18) Levofloxacin (test code=22) Meropenem (test code=34) Tetracycline (test code=2) Tobramycin (test code=25) Trimethoprim + Sulfamethoxazole (test code=47) CULTURE (BEAKER) (test asky=1214) ESCHERICHIA COLI <1+ Escherichia coli Amikacin (test code=1) Ampicillin + Sulbactam (test code=6) Aztreonam (test code=32) Cefepime (test code=51) Cefoxitin (test code=68) Ceftazidime (test code=27) Ceftriaxone (test code=52) Ertapenem (test code=38) Gentamicin (test code=18) Levofloxacin (test code=22) Meropenem (test code=34) Nitrofurantoin (test code=23) Piperacillin + Tazobactam (test code=29) Tetracycline (test code=2) Tobramycin (test code=25) Trimethoprim + Sulfamethoxazole (test code=47) CULTURE (BEAKER) (test tzma=6539) KLEBSIELLA OXYTOCA <1+ Klebsiella oxytoca Amikacin (test code=1) Ampicillin + Sulbactam (test code=6) Aztreonam (test code=32) Cefepime (test code=51) Cefoxitin (test code=68) Ceftazidime (test code=27) Ceftriaxone (test code=52) Ertapenem (test code=38) Gentamicin (test code=18) Levofloxacin (test code=22) Meropenem (test code=34) Nitrofurantoin (test code=23) Piperacillin + Tazobactam (test code=29) Tetracycline (test code=2) Tobramycin (test code=25) Trimethoprim + Sulfamethoxazole (test code=47) CULTURE (BEAKER) (test qkgg=6169) ENTEROCOCCUS SPECIES 3+ Enterococcus species Ampicillin (test code=26) Linezolid (test code=40) Vancomycin (test code=13) CULTURE (BEAKER) (test hlvl=3450) 1+ Viridans Streptococcus GRAM STAIN RESULT (BEAKER) (test mvbv=8717) No WBCs GRAM STAIN RESULT (BEAKER) (test leyq=314747) No organisms seen POCT-GLUCOSE [id number] 12:37:00* Test Item Value Reference Range Comments POC-GLUCOSE METER (BEAKER) (test xbcb=6394) 164 mg/dL 70-110 TESTED AT [facility] [address] [facility] [address] POCT-GLUCOSE [id number] 07:55:00* Test Item Value Reference Range Comments POC-GLUCOSE METER (BEAKER) (test gqsj=1404) 167 mg/dL 70-110 TESTED AT [place] [id number] [facility] [address] TROPONIN [id number] 06:58:00* Test Item Value Reference Range Comments TROPONIN I (BEAKER) (test nszi=468) < ng/mL 0.00-0.03 Troponin I (TnI) levels must be interpreted in the context of the presenting sym ptoms and the clinical findings. Elevated TnI levels indicate myocardial damage, but are not specific for ischemic heart disease. Elevated TnI levels are seen in patients with other cardiac conditions (including myocarditis and congestive h eart failure), and slight TnI elevations occur in patients with other conditions , including sepsis, renal failure, acidosis, acute neurological disease, and per sistent tachyarrhythmia.BASIC METABOLIC [id number] 06:01:00* Test Item Value Reference Range Comments SODIUM (BEAKER) (test pfjq=133) 135 meq/L 136-145 POTASSIUM (BEAKER) (test yffq=258) 3.8 meq/L 3.5-5.1 CHLORIDE (BEAKER) (test mwyj=746) 100 meq/L 98-107 CO2 (BEAKER) (test uwca=991) 25 meq/L 22-29 BLOOD UREA NITROGEN (BEAKER) (test pcry=950) 15 mg/dL 7-21 CREATININE (BEAKER) (test fovi=114) 0.61 mg/dL 0.57-1.25 GLUCOSE RANDOM (BEAKER) (test utuc=913) 156 mg/dL 70-105 CALCIUM (BEAKER) (test kgor=192) 8.3 mg/dL 8.4-10.2 EGFR (BEAKER) (test yxcj=5275) 130 mL/min/1.73 sq m ESTIMATED GFR IS NOT ACCURATE CREATININE CLEARANCE IN PREDICTING GLOMERULAR FILTRATION RATE. ESTIMATED GFR IS NOT APPLICABLE FOR DIALYSIS PATIENTS. AMYLASE, BODY [id number] 06:01:00* Test Item Value Reference Range Comments AMYLASE FLUID (BEAKER) (test nbub=773) 172 U/L Absence of reference range indicates that normals have not been defined.Assay pe rformance has not been validated for this type of specimen.ROSE #2AMYLASE, BODY [id number] 06:00:00* Test Item Value Reference Range Comments AMYLASE FLUID (BEAKER) (test ooss=977) 105 U/L Absence of reference range indicates that normals have not been defined.Assay pe rformance has not been validated for this type of specimen.ROSE#1CBC (HEMOGRAM ONLY)2017-09-12 05:28:00* Test Item Value Reference Range Comments WHITE BLOOD CELL COUNT (BEAKER) (test hwwk=563) 5.1 K/ L 3.5-10.5 RED BLOOD CELL COUNT (BEAKER) (test mtbk=578) 3.78 M/ L 4.63-6.08 HEMOGLOBIN (BEAKER) (test lqvt=213) 11.8 GM/DL 13.7-17.5 HEMATOCRIT (BEAKER) (test ywoy=126) 35.6 % 40.1-51.0 MEAN CORPUSCULAR VOLUME (BEAKER) (test qfgs=884) 94.2 fL 79.0-92.2 MEAN CORPUSCULAR HEMOGLOBIN (BEAKER) (test lgqo=041) 31.2 pg 25.7-32.2 MEAN CORPUSCULAR HEMOGLOBIN CONC (BEAKER) (test zbxs=449) 33.1 GM/DL 32.3-36.5 RED CELL DISTRIBUTION WIDTH (BEAKER) (test dmux=576) 15.3 % 11.6-14.4 PLATELET COUNT (BEAKER) (test qonw=315) 217 K/CU MM 150-450 MEAN PLATELET VOLUME (BEAKER) (test vunu=651) 9.7 fL 9.4-12.4 NUCLEATED RED BLOOD CELLS (BEAKER) (test hjer=253) 0 /100 WBC 0-0 POCT-GLUCOSE [id number] 21:36:00* Test Item Value Reference Range Comments POC-GLUCOSE METER (BEAKER) (test ckyx=3482) 161 mg/dL 70-110 TESTED AT [address] [address] POCT-GLUCOSE [id number] 17:45:00* Test Item Value Reference Range Comments POC-GLUCOSE METER (BEAKER) (test cypo=0567) 150 mg/dL 70-110 TESTED AT [address] [address] POCT-GLUCOSE [id number] 12:09:00* Test Item Value Reference Range Comments POC-GLUCOSE METER (BEAKER) (test wtan=5519) 137 mg/dL 70-110 TESTED AT [address] [address] POCT-GLUCOSE [id number] 08:57:00* Test Item Value Reference Range Comments POC-GLUCOSE METER (BEAKER) (test pasp=2777) 159 mg/dL 70-110 TESTED AT [address] [address] POCT-GLUCOSE [id number] 22:50:00* Test Item Value Reference Range Comments POC-GLUCOSE METER (BEAKER) (test wefl=2209) 205 mg/dL 70-110 TESTED AT [address] [address] POCT-GLUCOSE [id number] 17:51:00* Test Item Value Reference Range Comments POC-GLUCOSE METER (BEAKER) (test xrjx=0747) 113 mg/dL 70-110 TESTED AT [address] [address] AMYLASE, BODY [id number] 12:56:00* Test Item Value Reference Range Comments AMYLASE FLUID (BEAKER) (test gbvp=918) 1542 U/L Absence of reference range indicates that normals have not been defined.Assay pe rformance has not been validated for this type of specimen.Drain #1POCT-GLUCOSE [id number] 12:26:00* Test Item Value Reference Range Comments POC-GLUCOSE METER (BEAKER) (test rlxn=1528) 182 mg/dL 70-110 TESTED AT [address] [address] AMYLASE, BODY [id number] 11:12:00* Test Item Value Reference Range Comments AMYLASE FLUID (BEAKER) (test ttiy=331) 1134 U/L Absence of reference range indicates that normals have not been defined.Assay pe rformance has not been validated for this type of specimen.AMYLASE, BODY FLUID 2017-09-10 11:11:00* Test Item Value Reference Range Comments AMYLASE FLUID (BEAKER) (test giun=143) 1485 U/L Absence of reference range indicates that normals have not been defined.Assay pe rformance has not been validated for this type of specimen.Resend drain amylase from each drain today and label so we know which drain the sample came from. POCT-GLUCOSE [id number] 07:51:00* Test Item Value Reference Range Comments POC-GLUCOSE METER (BEAKER) (test osun=2254) 160 mg/dL 70-110 TESTED AT [facility] [address] [facility] [address] [id number] 06:44:00* Test Item Value Reference Range Comments MAGNESIUM (BEAKER) (test dpvq=435) 2.2 mg/dL 1.6-2.6 Specimen slightly hemolyzed BASIC METABOLIC [id number] 06:44:00* Test Item Value Reference Range Comments SODIUM (BEAKER) (test spkh=468) 138 meq/L 136-145 POTASSIUM (BEAKER) (test ofqn=964) 4.3 meq/L 3.5-5.1 Specimen slightly hemolyzed CHLORIDE (BEAKER) (test ofgf=300) 107 meq/L 98-107 CO2 (BEAKER) (test oohm=873) 22 meq/L 22-29 BLOOD UREA NITROGEN (BEAKER) (test eswc=782) 15 mg/dL 7-21 CREATININE (BEAKER) (test voag=801) 0.67 mg/dL 0.57-1.25 Specimen slightly hemolyzed GLUCOSE RANDOM (BEAKER) (test cxvk=130) 172 mg/dL 70-105 CALCIUM (BEAKER) (test yxsc=826) 8.7 mg/dL 8.4-10.2 EGFR (BEAKER) (test btts=7552) 117 mL/min/1.73 sq m ESTIMATED GFR IS NOT ACCURATE CREATININE CLEARANCE IN PREDICTING GLOMERULAR FILTRATION RATE. ESTIMATED GFR IS NOT APPLICABLE FOR DIALYSIS PATIENTS. AMYLASE, BODY [id number] 05:53:00* Test Item Value Reference Range Comments AMYLASE FLUID (BEAKER) (test ftfv=180) 2284 U/L Absence of reference range indicates that normals have not been defined.Assay pe rformance has not been validated for this type of specimen.Drain #2CBC (HEMOGRAM ONLY)2017-09-10 05:47:00* Test Item Value Reference Range Comments WHITE BLOOD CELL COUNT (BEAKER) (test qlzu=209) 12.9 K/ L 3.5-10.5 RED BLOOD CELL COUNT (BEAKER) (test kosn=969) 3.77 M/ L 4.63-6.08 HEMOGLOBIN (BEAKER) (test qonj=460) 11.7 GM/DL 13.7-17.5 HEMATOCRIT (BEAKER) (test fjbb=014) 35.8 % 40.1-51.0 MEAN CORPUSCULAR VOLUME (BEAKER) (test xqgt=921) 95.0 fL 79.0-92.2 MEAN CORPUSCULAR HEMOGLOBIN (BEAKER) (test bdnu=872) 31.0 pg 25.7-32.2 MEAN CORPUSCULAR HEMOGLOBIN CONC (BEAKER) (test sdur=078) 32.7 GM/DL 32.3-36.5 RED CELL DISTRIBUTION WIDTH (BEAKER) (test imqn=959) 15.7 % 11.6-14.4 PLATELET COUNT (BEAKER) (test fhmw=889) 210 K/CU MM 150-450 MEAN PLATELET VOLUME (BEAKER) (test dffr=338) 9.9 fL 9.4-12.4 NUCLEATED RED BLOOD CELLS (BEAKER) (test gwvi=578) 0 /100 WBC 0-0 POCT-GLUCOSE [id number] 20:57:00* Test Item Value Reference Range Comments POC-GLUCOSE METER (BEAKER) (test yulb=9296) 239 mg/dL 70-110 TESTED AT [facility] [address] [facility] [address] POCT-GLUCOSE [id number] 20:57:00* Test Item Value Reference Range Comments POC-GLUCOSE METER (BEAKER) (test gtin=5114) 251 mg/dL 70-110 TESTED AT [facility] [address] [facility] [address] POCT-GLUCOSE [id number] 15:37:00* Test Item Value Reference Range Comments POC-GLUCOSE METER (BEAKER) (test gtds=1919) 207 mg/dL 70-110 TESTED AT [facility] [address] [place] [address] CALCIUM, [id number] 12:01:00* Test Item Value Reference Range Comments CALCIUM IONIZED (BEAKER) (test iinz=031) 1.11 mmol/L 1.12-1.27 PH, BLOOD (BEAKER) (test gsmg=6550) 7.47 GLUCOSE-STAT [id number] 12:00:00* Test Item Value Reference Range Comments GLUCOSE RANDOM (BEAKER) (test febo=877) 212 mg/dL 70-110 BLOOD GAS, [id number] 10:31:00* Test Item Value Reference Range Comments PH ARTERIAL (BEAKER) (test zbxj=562) 7.49 7.35-7.45 PCO2 ARTERIAL (BEAKER) (test ysca=125) 33 mmHg 35-45 PO2 ARTERIAL (BEAKER) (test wavr=553) 178 mmHg 80-90 O2 SATURATION ARTERIAL (BEAKER) (test vlix=037) 99.4 % 96.0-97.0 HCO3 ARTERIAL (BEAKER) (test qije=519) 25 mmol/L 21-29 BASE EXCESS ARTERIAL (BEAKER) (test xsfe=303) 1.6 mmol/L -2.0-3.0 PATIENT TEMPERATURE (BEAKER) (test ncfa=4609) 36.2 C FIO2 (BEAKER) (test ocwq=7789) 45.0 % GLUCOSE-STAT [id number] 10:31:00* Test Item Value Reference Range Comments GLUCOSE RANDOM (BEAKER) (test eoog=430) 207 mg/dL 70-110 HGB/HCT (H&H) - STAT [id number] 10:31:00* Test Item Value Reference Range Comments HEMOGLOBIN (BEAKER) (test scel=411) 12.2 g/dL 13.0-16.8 HEMATOCRIT (BEAKER) (test qauj=558) 36.0 % 40.0-50.0 CALCIUM, [id number] 10:31:00* Test Item Value Reference Range Comments CALCIUM IONIZED (BEAKER) (test treb=878) 1.00 mmol/L 1.12-1.27 PH, BLOOD (BEAKER) (test wpfa=1451) 7.48 SODIUM NA-STAT [id number] 10:30:00* Test Item Value Reference Range Comments SODIUM (BEAKER) (test qdhf=017) 137 meq/L 135-148 POTASSIUM-STAT [id number] 10:30:00* Test Item Value Reference Range Comments POTASSIUM (BEAKER) (test tugq=978) 3.6 meq/L 3.6-5.5 POCT-GLUCOSE [id number] 06:46:00* Test Item Value Reference Range Comments POC-GLUCOSE METER (BEAKER) (test whta=4060) 125 mg/dL 70-110 TESTED AT [facility] [address] [facility] [address] CT, CHEST, WITH [id number] 17:40:00FINAL REPORT INDICATION:72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 Staging CT exam. COMPARISON: None. TECHNIQUE: CT of the Chest WITH intravenous contrast.CT of the Abdomen and Pelvis WITHOUT and [...] ABDOMEN and PELVIS: There is a metallic sten t in the common bile duct extending into the third part of the duodenum with exp ected pneumobilia. The intrahepatic bile ducts are not dilated. There is suggest ion of thickening of the ampulla, though this is not well visualized because of the presence of the metallic stent. No pancreatic mass or pancreatic ductal dila tation is demonstrated. No upper abdominal lymphadenopathy. No suspicious liver lesion. Spleen, adrenal glands, kidneys, bladder, and prostate gland are unremar kable. No pelvic or retroperitoneal lymphadenopathy. There is scattered mild flavio cified plaque of the abdominal aorta and iliac arteries. Stomach and jejunal and ileal loops are unremarkable. There is diffuse mild increase in colonic stool b urden. Diverticulosis of the sigmoid colon noted. No peritoneal free fluid. BONE S: No suspicious osseous lesion demonstrated. IMPRESSION: No evidence of metasta sis in the chest, abdomen, or pelvis. Diffusely enlarged and nonnodular thyroid gland. Metallic stent in the common bile duct extending into the third part of t he duodenum. No biliary ductal dilatation. 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 Staging CT exam. COMPARISON: None. TECHNIQUE: CT of the Chest WITH intravenous contrast.CT of the Abdomen and Pelvis WITHOUT and [...] ABDOMEN and PELVIS: There is a metallic sten t in the common bile duct extending into the third part of the duodenum with exp ected pneumobilia. The intrahepatic bile ducts are not dilated. There is suggest ion of thickening of the ampulla, though this is not well visualized because of the presence of the metallic stent. No pancreatic mass or pancreatic ductal dila tation is demonstrated. No upper abdominal lymphadenopathy. No suspicious liver lesion. Spleen, adrenal glands, kidneys, bladder, and prostate gland are unremar kable. No pelvic or retroperitoneal lymphadenopathy. There is scattered mild flavio cified plaque of the abdominal aorta and iliac arteries. Stomach and jejunal and ileal loops are unremarkable. There is diffuse mild increase in colonic stool b urden. Diverticulosis of the sigmoid colon noted. No peritoneal free fluid. BONE S: No suspicious osseous lesion demonstrated. IMPRESSION: No evidence of metasta sis in the chest, abdomen, or pelvis. Diffusely enlarged and nonnodular thyroid gland. Metallic stent in the common bile duct extending into the third part of t he duodenum. No biliary ductal dilatation. Signed: Timbo Hill MDReport Regla ified Date/Time: 08/25/2017 17:40:28 Reading Location: [facility] B[facility] C013Y CT Body [facility] Room [id number] 14:12:00* Test Item Value Reference Range Comments PREALBUMIN (BEAKER) (test ltxe=647) 22 mg/dL 14-45 HEPATIC FUNCTION [id number] 14:11:00* Test Item Value Reference Range Comments TOTAL PROTEIN (BEAKER) (test tdvl=572) 6.9 gm/dL 6.0-8.3 ALBUMIN (BEAKER) (test ieda=8239) 4.1 g/dL 3.5-5.0 BILIRUBIN TOTAL (BEAKER) (test bezw=056) 0.6 mg/dL 0.2-1.2 BILIRUBIN DIRECT (BEAKER) (test fbpx=477) 0.3 mg/dL 0.1-0.5 ALKALINE PHOSPHATASE (BEAKER) (test hzja=692) 80 U/L 40-150 AST (SGOT) (BEAKER) (test dgre=655) 14 U/L 5-34 ALT (SGPT) (BEAKER) (test dmah=805) 15 U/L 6-55 BASIC METABOLIC [id number] 14:11:00* Test Item Value Reference Range Comments SODIUM (BEAKER) (test uvnv=375) 143 meq/L 136-145 POTASSIUM (BEAKER) (test lsdy=482) 4.3 meq/L 3.5-5.1 CHLORIDE (BEAKER) (test qilb=964) 105 meq/L 98-107 CO2 (BEAKER) (test xrvk=822) 30 meq/L 22-29 BLOOD UREA NITROGEN (BEAKER) (test mpjd=610) 11 mg/dL 7-21 CREATININE (BEAKER) (test wbqq=949) 0.73 mg/dL 0.57-1.25 GLUCOSE RANDOM (BEAKER) (test plnm=570) 110 mg/dL 70-105 CALCIUM (BEAKER) (test orax=900) 9.1 mg/dL 8.4-10.2 EGFR (BEAKER) (test puds=5330) 106 mL/min/1.73 sq m ESTIMATED GFR IS NOT ACCURATE CREATININE CLEARANCE IN PREDICTING GLOMERULAR FILTRATION RATE. ESTIMATED GFR IS NOT APPLICABLE FOR DIALYSIS PATIENTS. PROTHROMBIN TIME/[id number] 14:01:00* Test Item Value Reference Range Comments PROTIME (BEAKER) (test xrbp=149) 14.8 seconds 11.7-14.7 INR (BEAKER) (test vznk=039) 1.2 <=5.9 RECOMMENDED COUMADIN/WARFARIN INR THERAPY RANGESSTANDARD DOSE: 2.0 - 3.0 Inclu juan: PROPHYLAXIS for venous thrombosis, systemic embolization; TREATMENT for dee ous thrombosis and/or pulmonary embolus.HIGH RISK: Target INR is 2.5-3.5 for pat ients with mechanical heart valves.CBC W/PLT COUNT & AUTO [id number] 13:50:00* Test Item Value Reference Range Comments WHITE BLOOD CELL COUNT (BEAKER) (test sitg=365) 4.4 K/ L 3.5-10.5 RED BLOOD CELL COUNT (BEAKER) (test rwyy=253) 4.35 M/ L 4.63-6.08 HEMOGLOBIN (BEAKER) (test npbc=264) 12.8 GM/DL 13.7-17.5 HEMATOCRIT (BEAKER) (test gxzv=475) 39.7 % 40.1-51.0 MEAN CORPUSCULAR VOLUME (BEAKER) (test bihw=840) 91.3 fL 79.0-92.2 MEAN CORPUSCULAR HEMOGLOBIN (BEAKER) (test mlah=750) 29.4 pg 25.7-32.2 MEAN CORPUSCULAR HEMOGLOBIN CONC (BEAKER) (test faog=624) 32.2 GM/DL 32.3-36.5 RED CELL DISTRIBUTION WIDTH (BEAKER) (test apje=135) 15.7 % 11.6-14.4 PLATELET COUNT (BEAKER) (test tfth=476) 233 K/CU MM 150-450 MEAN PLATELET VOLUME (BEAKER) (test rsyf=871) 9.0 fL 9.4-12.4 NUCLEATED RED BLOOD CELLS (BEAKER) (test qbps=075) 0 /100 WBC 0-0 NEUTROPHILS RELATIVE PERCENT (BEAKER) (test ohhk=435) 67 % LYMPHOCYTES RELATIVE PERCENT (BEAKER) (test xamw=833) 24 % MONOCYTES RELATIVE PERCENT (BEAKER) (test funz=646) 8 % EOSINOPHILS RELATIVE PERCENT (BEAKER) (test egzm=662) 0 % BASOPHILS RELATIVE PERCENT (BEAKER) (test lsei=468) 1 % NEUTROPHILS ABSOLUTE COUNT (BEAKER) (test hwey=132) 2.96 K/ L 1.78-5.38 LYMPHOCYTES ABSOLUTE COUNT (BEAKER) (test lneo=463) 1.06 K/ L 1.32-3.57 MONOCYTES ABSOLUTE COUNT (BEAKER) (test uhtz=336) 0.37 K/ L 0.30-0.82 EOSINOPHILS ABSOLUTE COUNT (BEAKER) (test hbyc=248) 0.01 K/ L 0.04-0.54 BASOPHILS ABSOLUTE COUNT (BEAKER) (test hepk=067) 0.02 K/ L 0.01-0.08 IMMATURE GRANULOCYTES-RELATIVE PERCENT (BEAKER) (test cnmh=7552) 0 % 0-1 FL, [id number] 16:34:00Reason for exam:->carcinoma in situ of ampulla,ampulla vater obstructionFINAL REPORT Fluoroscopic images were acquired for procedural assistance. Fluoroscopy time 2.2 minutes. Fluoroscopic images 4. Fluoroscopy was used during endoscopic retrograde cholangiogram and placement of a second stent in the distal common bile duct. Because images were not submitted for interpretation, see separate report by the referring physician for clinical details and imaging interpretation. Signed: Timbo Hill MDReport Verified Date/Time: 08/03/2017 16:34:57 Reading Location: [address] Radiology Reading Room El ectronically signed by: TIMBO HILL M.D. on 08/03/2017 04:34 PM POCT-GLUCOSE [id number] 13:13:00* Test Item Value Reference Range Comments POC-GLUCOSE METER (BEAKER) (test vsab=3281) 118 mg/dL 70-110 [facility] AT [facility] [address] [facility] [id number]
[2018-05-06 13:00] VITALS: BP 124/68
--- NOTE | 2018-05-30 11:38 | Operative Report ---
DATE OF PROCEDURE: 05/06/2018 SURGEON: Hector Choi MD PREOPERATIVE DIAGNOSIS: Refractory urge incontinence. POSTOPERATIVE DIAGNOSIS: Refractory urge incontinence. OPERATION PERFORMED: 1. Incision for removal of peripheral neurostimulator electrode array from the right foramen S3. 2. Complete InterStim system implantation with incision implantation of tined quadripolar lead electrodes into the right foramen S3. 3. Fluoroscopic guidance for needle placement. 4. Replacement of sacral nerve neurostimulator located on the left hand side. 5. Electronic analysis and complex programing. ANESTHESIA: General. COMPLICATIONS: None. CLINICAL SUMMARY: Eduardo Oh is a 73-year-old man, who had refractory urge incontinence. He had excellent response with InterStim implant. The patient lost 50 pounds and his lead has migrated in an anterior and cephalad fashion and is no longer effectively stimulating his S3 nerve. The patient is brought for the above procedure. He is aware of the risks of bleeding, infection, injury to adjacent structures, and need for additional procedures, and elected to proceed. PROCEDURE IN DETAIL: Informed consent was verified. Eduardo Oh was preoperatively identified, taken to the operating room. Anesthesia was uneventfully begun. The patient was then carefully and gently repositioned in the prone position with all pressure points carefully well padded. His back and buttocks were prepared and draped in the usual sterile fashion. An incision was made overlying the existing implant and it was excised, disconnected from the lead and removed. An incision was then made overlying the implantation region of the existing lead. We followed the lead down to the foramen. We then grasped the lead and gently pulled that and as we did that, the lead disintegrated from the contact points. The lead was removed before contact points were made. The needle was then introduced into the right foramen S3. Proper position was confirmed fluoroscopically as well as with plantar flexion of the great toe and direct observation with lifting of the perineum "bellowing." The needle stylet was then removed and directional guidewire was then placed and confirmed fluoroscopically. The foramen needle was then removed. An incision was then made peripherally to the directional guide. The dilator and introducer sheath were then placed over the directional guidewire and directed into the foramen until the opaque marker of the dilator was present in the midway through the sacrum. The dilator obturator was unlocked and removed and the lead was then placed through introducer sheath through the first white line. Position was checked fluoroscopically. The lead was then further introduced until the electrodes were visible anterior to the sacrum. Each electrode was tested with the correct response as noted above. After satisfactory positioning was confirmed and under continuous fluoroscopy, the introducer sheath was retracted, thus deploying the lead tines into the presacral tissue. We then utilized the tunneling tool to bring the new lead to the pocket site. The lead was then cleansed of bodily fluids with sterile water and thoroughly dried. It was then introduced into a new pulse generator with the metal bands aligned and the blue tip clearly visible in the distal portion of the pulse generator header. The single setscrew was tightened with a hex wrench. All incisions were copiously irrigated and hemostasis was verified. The pulse generator was then placed into the subcutaneous pocket. The programing head was placed over the implanted neurostimulator. Impedence was verified to be in the appropriate limits for all leads. All incisions were then approximated in 2 layers utilizing absorbable sutures, Mastisol, Steri-Strips, and bioclusive dressings were applied and the patient was uneventfully reversed from anesthesia and taken to the recovery room in stable condition. There were no complications to the procedure. The patient tolerated the procedure well. Sponge, needle, and instrument counts were of course correct x2 at the end of the case. Estimated blood loss was minimal. Once the patient was awake, the neurostimulator was programed to the lead of optimum sensation and he was sent home with explicit instructions. Plans will be to follow the patient up in the office at which point in time, we will check the impendence and reprogram if needed. Hector MD Steph OH/MODL /[id number] cc: Myra Padilla MD
== END | disposition home or self-care (01) ==
LOC: OR 08:36
PROVIDERS: ATTEND Urology
DX: T85.890A Other specified complication of nervous system prosthetic devices, implants and grafts, initial encounter (principal); N39.41 Urge incontinence; I69.351 Hemiplegia and hemiparesis following cerebral infarction affecting right dominant side; G20 Parkinson's disease; E11.9 Type 2 diabetes mellitus without complications; K25.9 Gastric ulcer, unspecified as acute or chronic, without hemorrhage or perforation; M19.90 Unspecified osteoarthritis, unspecified site; K21.9 Gastro-esophageal reflux disease without esophagitis; F32.9 Major depressive disorder, single episode, unspecified; Y83.8 Other surgical procedures as the cause of abnormal reaction of the patient, or of later complication, without mention of misadventure at the time of the procedure; Z88.0 Allergy status to penicillin; Z01.810 Encounter for preprocedural cardiovascular examination; Z01.812 Encounter for preprocedural laboratory examination; Z01.818 Encounter for other preprocedural examination; Z87.891 Personal history of nicotine dependence
CPT/HCPCS: 64581; 64590; 95972; L8679; 36415; 71046; 76000; 80048; 82948; 85025; 88300; 93005; C1778; C1787; C1894; J1100; J1580; J2001; J2405